=== PATIENT | male | born 1965 | race Caucasian/White ===

== ENCOUNTER 2019-12-28 15:26 | Inpatient (IN) | payer OTHER, SELFPAY ==
[2019-12-28] MEDS: LORazepam 1 MG TABLET 2 MG PO (17:42)
--- NOTE | 2019-12-28 17:45 | ED_ITS ---
HPI - Psych General Chief Complaint: Psychiatric Symptoms Stated Complaint: crisis Time Seen by Provider: 12/28/19 17:38 Source: patient and family Mode of arrival: ambulatory Limitations: no limitations History of Present Illness HPI Narrative: 54-year-old male with significant history of anxiety, depression, PTSD presents with anxiety and depression. States that he has had multiple anxiety and panic attacks at work and home. He is unable to function and complete ADLs. His depression and anxiety was exacerbated by the of his mother, his father in February, his mother a few months ago. He also reports that he has been , and his current has been picking up his slack because of his depression and anxiety. He states the medications that he takes are ineffective and continues to take them on a daily basis. He is hoping for psychiatric evaluation while he is here, he does have 1 pending the end of February. He does report suicidal ideation and thinks about it on a regular basis but does not have plan that he will discuss. Denies chest pain or pressure, palpitations, shortness of breath, abdominal pain, abdominal distention, dysuria, hematuria, fevers and chills. MD complaint: feels depressed and anxiety Onset (ago): month(s) Duration: getting worse History of same: Yes Relieving factors: none Associated psychiatric symptoms: depression and racing thoughts Related Data Home Medications Medication Instructions Recorded Confirmed buspirone 15 mg PO BID 12/28/19 12/28/19 clonazepam [Klonopin] 0.5 mg PO DAILY@0630 12/28/19 12/28/19 clonazepam [Klonopin] 1 mg PO BEDTIME 12/28/19 12/28/19 escitalopram oxalate 30 mg PO DAILY@0730 12/28/19 12/28/19 Allergies Allergy/AdvReac Type Severity Reaction Status Date / Time bee pollen [BEE STINGS] Allergy Severe SWELLING Verified 12/28/19 22:16 Review of Systems Review of Systems: Constitutional: No Fever, No Chills ENT/Mouth: No Ear Pain, No Nasal Congestion, No sore throat Eyes: No Eye Pain, No Swelling, No Redness Cardiovascular: No Chest Pain, No SOB Respiratory: No Cough, No Sputum, No Dyspnea Gastrointestinal: No Nausea, No Vomiting, No Diarrhea, No Hematochezia, No Melena Genitourinary: No Dysuria, No Urinary Frequency, No Hematuria Musculoskeletal: No Myalgias Skin: No Skin Lesions, No rash Neuro: No Weakness, No Numbness, No Paresthesias, No Dizziness, No Headache Psych: positive Anxiety, positive Depression, positive SI Heme/Lymph: No Lymphadenopathy Endocrine: No Polyuria, No Polydipsia [facility] Past Medical History Attestation statement: The following information was validated with the patient. Source: obtained from family Social History Social History Alcohol intake: former Smoking Status: Current every day smoker Smoked in Last 30 Days: Yes Use of substances other than those prescribed or required for medical reasons: No Advance Directives: No Advance Directives Information Provided: No Physical Exam Vital Signs: Vital Signs: Last Vital Signs Temp 97.3 F 12/28/19 21:46 Pulse 70 12/28/19 22:14 Resp 20 12/28/19 22:14 BP 127/59 L 12/28/19 21:46 Pulse Ox 96 12/28/19 21:46 Body Mass Index 26.4 Appearance: Alert. Oriented X3. No acute distress. Eyes: Pupils equal, round and reactive to light. ENT: Pharynx normal. Neck: Normal inspection. Neck supple. CVS: Normal heart rate and rhythm. Pulses normal. Respiratory: No respiratory distress. Breath sounds normal. Abdomen: Soft and nontender. Skin: Skin warm and dry. Normal skin color. Normal skin turgor. Extremities: No lower extremity edema. Neuro: No motor deficit. No sensory deficit. Course Course Course Narrative: 54-year-old male with significant history of anxiety, depression, PTSD presents with anxiety and depression. Plan of care is for medical clearance with CBC, Chem 7, urinalysis, toxicology screen and BHN consult. Reevaluation(s) Reevaluation #1: Bhn Consult complete, plan of care is for Section 12 bed search. Time: 23:00 MDM - Psych Differential Diagnosis Differential diagnosis: Likely acute psychosis, suicidal ideation, depression, drug-induced psychotic disorder, acute anxiety, post-traumatic stress disorder and mood disorder Restraints Face to Face Assessment: Face to Face Assessment: Current Situation: After assessment of the patient, a review of the pertinent medical record and a discussion with nursing staff, I feel the patient requires a restrain intervention. Reaction To: [] Medical Condition: [] Behavioral State: [] Continued Need: [] Medical Records Attestation: I reviewed the patient's medical records. Lab Data Attestation: I reviewed the patient's lab results. Result diagrams: 12/28/19 18:20 Labs: Lab Results 12/28/19 12/28/19 12/28/19 Range/Units 18:11 18:19 18:20 WBC 8.7 (4.8-10.8) X10*3/uL RBC 4.78 (4.60-5.80) X10*6/uL Hgb 14.5 (14.0-18.0) g/dl Hct 43.2 (42-52) % MCV 90.4 (80-98) fL MCH 30.3 (27.0-33.0) pg MCHC 33.6 (31.0-36.0) g/dl RDW 13.0 (11.0-16.0) % Plt Count 272 (160-400) X10*3/uL MPV 9.3 L (9.4-12.4) fL Immature Gran % (Auto) 0.6 H (0.0-0.4) % Neut % (Auto) 59.1 (45-73) % Lymph % (Auto) 29.5 (20-40) % [place] % (Auto) 7.5 (2-11) % Eos % (Auto) 2.5 (0-4) % Baso % (Auto) 0.8 (0-2) % Lymph # (Auto) 2.6 (1.2-4.9) X10*3/uL [place] # (Auto) 0.7 (0.1-1.2) X10*3/uL Eos # (Auto) 0.2 (0.0-0.4) X10*3/uL Baso # (Auto) 0.1 (0.0-0.2) X10*3/uL Abs Immat Gran (auto) 0.05 H (0.00-0.03) X10*3/uL Absolute Neuts (auto) 5.1 (2.0-8.3) X10*3/uL Absolute Nucleated RBC 0.000 (0.0-0.012) X10*3/uL Nucleated RBC % (auto) 0.0 (0.0-0.2) /100WBC Salicylates (15-30) mg/dL Urine Opiates Screen Not Detected (Not Detect) Acetaminophen (<30) mcg/mL Ur Barbiturates Screen Not Detected (Not Detect) Ur Phencyclidine Scrn Not Detected (Not Detect) Ur Amphetamines Screen Not Detected (Not Detect) U Benzodiazepines Scrn Not Detected (Not Detect) Urine Cocaine Screen Not Detected (Not Detect) U Marijuana (THC) Screen Not Detected (Not Detect) Ethyl Alcohol < 10 mg/dL 12/28/19 Range/Units 18:20 WBC (4.8-10.8) X10*3/uL RBC (4.60-5.80) X10*6/uL Hgb (14.0-18.0) g/dl Hct (42-52) % MCV (80-98) fL MCH (27.0-33.0) pg MCHC (31.0-36.0) g/dl RDW (11.0-16.0) % Plt Count (160-400) X10*3/uL MPV (9.4-12.4) fL Immature Gran % (Auto) (0.0-0.4) % Neut % (Auto) (45-73) % Lymph % (Auto) (20-40) % [place] % (Auto) (2-11) % Eos % (Auto) (0-4) % Baso % (Auto) (0-2) % Lymph # (Auto) (1.2-4.9) X10*3/uL [place] # (Auto) (0.1-1.2) X10*3/uL Eos # (Auto) (0.0-0.4) X10*3/uL Baso # (Auto) (0.0-0.2) X10*3/uL Abs Immat Gran (auto) (0.00-0.03) X10*3/uL Absolute Neuts (auto) (2.0-8.3) X10*3/uL Absolute Nucleated RBC (0.0-0.012) X10*3/uL Nucleated RBC % (auto) (0.0-0.2) /100WBC Salicylates < 5.0 L (15-30) mg/dL Urine Opiates Screen (Not Detect) Acetaminophen < 1 (<30) mcg/mL Ur Barbiturates Screen (Not Detect) Ur Phencyclidine Scrn (Not Detect) Ur Amphetamines Screen (Not Detect) U Benzodiazepines Scrn (Not Detect) Urine Cocaine Screen (Not Detect) U Marijuana (THC) Screen (Not Detect) Ethyl Alcohol mg/dL Discharge Plan Discharge Clinical Impression: Acute anxiety Depression Qualifiers: Depression Type: major depressive disorder Major depression recurrence: recurrent Active/Remission status: currently active Major depression episode severity: severe Psychotic features: without psychotic features Qualified Co de(s): F33.2 - Major depressive disorder, recurrent severe without psychotic features Prescriptions: No Action clonazepam [Klonopin] 0.5 mg Tablet 0.5 mg PO DAILY@0630 RF: 0 clonazepam [Klonopin] 1 mg Tablet 1 mg PO BEDTIME RF: 0 buspirone 15 mg Tablet 15 mg PO BID RF: 0 escitalopram oxalate 10 mg Tablet 30 mg PO DAILY@0730 RF: 0
[2019-12-28 18:29] LABS: Basophils Absolute Auto 0.1 X10*3/uL (0.0-0.2); Basophils Percent Auto 0.8 % (0-2); Eosinophils Absolute Auto 0.2 X10*3/uL (0.0-0.4); Eosinophils Percent Auto 2.5 % (0-4); Hematocrit 43.2 % (42-52); Hemoglobin 14.5 g/dl (14.0-18.0); Imm Gran Abs Auto 0.05 X10*3/uL (0.00-0.03); Imm Gran Pct Auto 0.6 % (0.0-0.4); Lymphocytes Absolute Auto 2.6 X10*3/uL (1.2-4.9); Lymphocytes Percent Auto 29.5 % (20-40); MANUAL DIFF FLAG NO; Mean Corpuscular HGB Conc 33.6 g/dl (31.0-36.0); Mean Corpuscular Hemoglobin 30.3 pg (27.0-33.0); Mean Corpuscular Volume 90.4 fL (80-98); Mean Platelet Volume 9.3 fL (9.4-12.4); Monocytes Absolute Auto 0.7 X10*3/uL (0.1-1.2); Monocytes Percent Auto 7.5 % (2-11); Neutrophils Absolute Auto 5.1 X10*3/uL (2.0-8.3); Neutrophils Percent Auto 59.1 % (45-73); Platelet Count 272 X10*3/uL (160-400); Red Blood Count 4.78 X10*6/uL (4.60-5.80); White Blood Count 8.7 X10*3/uL (4.8-10.8)
--- NOTE | 2019-12-28 18:45 | PC.NURSE ---
PT's called to assist with triage. stated that her has been extremely anxious at work, forcing him to leave work quite often. He was prescribed medications from the [facility] but and feel they are not helping with his symptoms. stated that the PT makes statements like you are better off without me on a frequent basis and she is fearful for his safety. PT states that he would like help with his metal health but is very anxious all the time.
--- NOTE | 2019-12-28 18:54 | PC.NURSE ---
Contacts: (Tonia) - [phone]; Therapist (Tab Cummings) [phone]
[2019-12-28 19:02] VITALS: BMI 26.4
[2019-12-28 19:10] LABS: Ethanol < 10 mg/dL
[2019-12-28 19:13] LABS: Amphetamine Screen Urine Not Detected (Not Detect); Barbiturates, Urine Not Detected (Not Detect); Benzodiazepines Screen Urine Not Detected (Not Detect); Cannabinoid Screen Urine Not Detected (Not Detect); Cocaine Screen Urine Not Detected (Not Detect); Opiate Screen Urine Not Detected (Not Detect); Phencyclidine Screen Urine Not Detected (Not Detect)
[2019-12-28 19:15] LABS: Acetaminophen LAB < 1 mcg/mL (<30)
[2019-12-28 19:20] LABS: Salicylate < 5.0 mg/dL (15-30)
[2019-12-28 21:46] VITALS: BP 127/59; PULSE 59; RESP 18; TEMP 36.3; O2SAT 96
[2019-12-28] MEDS: Nicotine 21 MG PATCH.TD24 TRANSDERMA (22:01)
--- NOTE | 2019-12-28 22:07 | PC.NURSE ---
Patient in bed resting, care team assessed the patient, patient engaged and cooperative with assessment, care team updated patient's disposition, patient is in-patient bed search. Patient and provider aware. Patient reported he is heavy smoker requested for nicotine patch, provider notified/ordered nicotine 21 mcg/administered as ordered. Patient denied distress at this time. Will continue to monitor.
[2019-12-28 22:14] VITALS: PULSE 70; RESP 20
[2019-12-28] MEDS: busPIRone HCl 5 MG TABLET 15 MG PO (22:38)
[2019-12-28] MEDS: clonazePAM 1 MG TABLET PO (22:38)
--- NOTE | 2019-12-29 | ECG_ITS ---
Test Reason : CARDIAC HISTORY Blood Pressure : / mmHG Vent. Rate : 058 BPM Atrial Rate : 058 BPM P-R Int : 148 ms QRS Dur : 110 ms QT Int : 456 ms P-R-T Axes : 053 082 073 degrees QTc Int : 447 ms Sinus bradycardia Otherwise normal ECG When compared with ECG of 06-APR-2015 19:19, Vent. rate has decreased BY 34 BPM Referred By: Hue Oliver Electronically Signed By:KAMLA NGUYEN MD
--- NOTE | 2019-12-29 02:31 | PC.NURSE ---
Patient in bed appears sleeping, no distress observed/reported, respiration +/=/non-labored bilaterally, will continue to monitor.
--- NOTE | 2019-12-29 04:22 | PC.NURSE ---
Patient in bed appears sleeping, no distress observed/reported, respiration +/=/non-labored bilaterally, will continue to monitor.
[2019-12-29] MEDS: Escitalopram Oxalate 10 MG TABLET 30 MG PO (06:33)
[2019-12-29] MEDS: clonazePAM 0.5 MG TABLET PO (06:33)
[2019-12-29 06:49] VITALS: BP 135/79; PULSE 76; RESP 17; TEMP 36.4; O2SAT 98
--- NOTE | 2019-12-29 07:38 | PC.NURSE ---
Report received from SHANNA Kruse. Pt awake, affect anxious, reports increased depression. Reviewed crisis process w/ pt, pt denies any needs at this time.
[2019-12-29 09:05] VITALS: BP 138/80; PULSE 65; TEMP 36.8; O2SAT 96
[2019-12-29] MEDS: busPIRone HCl 5 MG TABLET 15 MG PO ×2 (09:17→21:03)
[2019-12-29 10:05] LABS: Anion Gap 10 (12-20); Blood Urea Nitrogen 14 mg/dL (9-16); Calcium 8.4 mg/dL (8.4-10.2); Carbon Dioxide 30 mmol/L (22-29); Chloride 104 mmol/L (96-108); Creatinine Clr Calc Pharmacy 102.5; Estimated Glomerular Filt Rate > 60; Glucose Random 78 mg/dL (60-115); Potassium 4.5 mmol/l (3.3-5.1); Sodium 139 mmol/L (135-145)
[2019-12-29 10:07] LABS: COVID-19 Test Negative (Negative)
[2019-12-29] MEDS: Nicotine 21 MG PATCH.TD24 TRANSDERMA (10:36)
--- NOTE | 2019-12-29 10:54 | MHC.CARE ---
CARE Team contacted [phone] for pre-authorization claim submission. R requested clinical faxed to [phone] with the reference #[id number]. [facility] will follow up with inpatient UR within 3 business days.
[2019-12-29] MEDS: Acetaminophen 325 MG TABLET 650 MG PO (14:51)
--- NOTE | 2019-12-29 15:31 | PC.NURSE ---
Pt reporting headache- medicated as requested with tylenol- pt showered. Affect even, pt reports continued depression.
[2019-12-29 16:53] VITALS: BP 116/80; PULSE 65; RESP 20; TEMP 36.4; O2SAT 97
--- NOTE | 2019-12-29 17:55 | PC.NURSE ---
pt resting in room. reporting that headache is returning- will accept ibuprofen when dinner arrives- M5 called to see when pt will be transferred- will call back.
[2019-12-29] MEDS: Ibuprofen 600 MG TABLET PO (18:33)
--- NOTE | 2019-12-29 18:48 | PC.NURSE ---
Report given to SHANNA Dacosta on M5
--- NOTE | 2019-12-29 19:14 | MHC.CARE ---
CARE team met with this patient in EDBH pod 4 to facilitate transfer/admission to . Patient is being admitted voluntarily and signed CV.
[2019-12-29] MEDS: clonazePAM 1 MG TABLET PO (21:02)
--- NOTE | 2019-12-30 01:12 | PC.ADMIT ---
A 54 year old , white male was [facility] to [facility] as a CV following referral from [facility] and the CARE team. Pt has a previous admission on [facility] on 04/07/2015. Pt has previous hospitalizations at [facility] in the 1979's and in 2013. Pt presented to [facility] at the urging of his due to worsening anxiety that was impacting pt's level of functioning in the community. Pt reported feeling weak and fighting my body every day and his mood as numb and fightingg to be happy . Pt spoke of passive SI saying I wish this would all end, I am tired . Pt denied current SI with this securities underwriter but spoke of recent SI with a plan to O/D on alike or drive into a bridge abutment on [place] Pt said he can be safe on the unit, but was vague as to whether he could come to staff for help. Pt denies AH/VH. Pt denies homicidal thoughts or intent. Pt reports significant losses, having been twice and suffered the loss of both parents in the past year. Pt feels current medications are ineffective and would like med management. Pt has services from the [facility], but does not have an appointment with a provider until February 2020. BAL <10, RANDHAWA was negative. Medical problems include: eczema, arthritis, herniated disc lower back, and sleep apnea for which pt does not use CPAP. Pt was placed on 15 minute Safety Checks upon arrival. [id number] done and admitting orders obtained. Pt resting in room at this time.
[2019-12-30 06:35] VITALS: BP 104/60; PULSE 62; RESP 16; TEMP 36.4
[2019-12-30] MEDS: Escitalopram Oxalate 10 MG TABLET 30 MG PO (06:47)
[2019-12-30] MEDS: clonazePAM 0.5 MG TABLET PO (06:47)
[2019-12-30] MEDS: busPIRone HCl 5 MG TABLET 15 MG PO ×2 (08:57→20:34)
[2019-12-30] MEDS: Nicotine 21 MG PATCH.TD24 TRANSDERMA (08:59)
--- NOTE | 2019-12-30 11:42 | P.HPPS_ITS ---
HPI Chief Complaint: Depression, anxiety, hopelessness, passive SI Sources of Information: patient interviewed, chart reviewed and crisis/core team assessment reviewed HPI Narrative: pt reports that anxiety and depression started with the loss of 2 yrs ago. He reports this last year has been worse; He reports both his parents this year. He has been more depressed and anxious and has has trouble finding services; he is on a wting list at [facility]. He feels his meds are not working(started by [facility]) he has had to leave work up to 2 times a week due to panic attacks He is having frequent panic attacks and this has lead to feeling suicidal with passive SI thoughts and hopelessness. He reports ruminating about his health, his health, ruminating that he can not do his job; ruminating that the anxiety will never go away. He tells me he quit any ETOH and THC use 2 months ago because his current quit and he states it was out of hand. But he can not tell me how much he was using in clearer terms; He is very anxious and has difficulty expressing himself Past Psychiatric History: history of mental health treatment at [facility] and currently has therapist at [facility] Medical Evaluation Reviewed: Yes EKG normal except for bradycardia - eval in ED and medical cleared no apparent cranial nerve involvement chemistry and CBC essentially normal covid negative tox screen negative [facility] Medical History Anxiety Arthritis Narrative: pt reports hand surgery for fracture repair- unknown date reports hernia repari Surgical History Hx of tonsillectomy Family History: reports currently to 3rd ; reports lost his 2nd to illness 2 yrs ago; lost both parents this year- father in Feb 2019 and mother in July 2019. Pt reports he has not been right since. 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 He is vague about how much he used in past. Trauma History: loss of family members Diagnostics Vital Signs (24Hr): Vital Signs - 24 hr 12/29/19 16:53 12/30/19 06:35 Temperature 97.5 F 97.6 F Pulse Rate 65 62 Respiratory Rate 20 16 Blood Pressure 116/80 104/60 Pulse Oximetry 97 Body Mass Index 26.4 Labs Results: 12/28/19 18:20 12/29/19 09:30 Labs: Laboratory Results - last 48 hr 12/28/19 12/28/19 12/28/19 18:11 18:19 18:20 WBC 8.7 RBC 4.78 Hgb 14.5 Hct 43.2 MCV 90.4 MCH 30.3 MCHC 33.6 RDW 13.0 Plt Count 272 MPV 9.3 L Immature Gran % (Auto) 0.6 H Neut % (Auto) 59.1 Lymph % (Auto) 29.5 [place] % (Auto) 7.5 Eos % (Auto) 2.5 Baso % (Auto) 0.8 Lymph # (Auto) 2.6 [place] # (Auto) 0.7 Eos # (Auto) 0.2 Baso # (Auto) 0.1 Abs Immat Gran (auto) 0.05 H Absolute Neuts (auto) 5.1 Absolute Nucleated RBC 0.000 Nucleated RBC % (auto) 0.0 Sodium Potassium Chloride Carbon Dioxide Anion Gap BUN Creatinine Estim Creat Clear Calc Estimated GFR Random Glucose Calcium Salicylates Urine Opiates Screen Not Detected Acetaminophen Ur Barbiturates Screen Not Detected Ur Phencyclidine Scrn Not Detected Ur Amphetamines Screen Not Detected U Benzodiazepines Scrn Not Detected Urine Cocaine Screen Not Detected U Marijuana (THC) Screen Not Detected Ethyl Alcohol < 10 COVID-19 ([facility]) COVID-19 Clin Com 12/28/19 12/29/19 12/29/19 18:20 09:26 09:30 WBC RBC Hgb Hct MCV MCH MCHC RDW Plt Count MPV Immature Gran % (Auto) Neut % (Auto) Lymph % (Auto) [place] % (Auto) Eos % (Auto) Baso % (Auto) Lymph # (Auto) [place] # (Auto) Eos # (Auto) Baso # (Auto) Abs Immat Gran (auto) Absolute Neuts (auto) Absolute Nucleated RBC Nucleated RBC % (auto) Sodium 139 Potassium 4.5 Chloride 104 Carbon Dioxide 30 H Anion Gap 10 L BUN 14 Creatinine 0.85 Estim Creat Clear Calc 102.5 Estimated GFR > 60 Random Glucose 78 Calcium 8.4 Salicylates < 5.0 L Urine Opiates Screen Acetaminophen < 1 Ur Barbiturates Screen Ur Phencyclidine Scrn Ur Amphetamines Screen U Benzodiazepines Scrn Urine Cocaine Screen U Marijuana (THC) Screen Ethyl Alcohol COVID-19 ([facility]) Negative COVID-19 Clin Com See Note Meds/Allergies Meds Home Medications Acetaminophen (Acetaminophen 325 Mg Tablet) 650 mg PO Q6H PRN PRN Reason: Headache/Pain Mild Scale (1-3) Al Hydroxide/Mg Hydroxide (Magnesium Hydrox/Alum Hydrox 30 Ml Oral.Susp) 30 ml PO Q6H PRN PRN Reason: Heartburn/Nausea Buspirone HCl (Buspirone Hcl 5 Mg Tablet) 15 mg PO BID [facility] Last Admin: 12/30/19 08:57 Dose: 15 mg Documented by: Clonazepam (Clonazepam 0.5 Mg Tablet) 0.5 mg PO DAILY@0630 [facility] Last Admin: 12/30/19 06:47 Dose: 0.5 mg Documented by: Clonazepam (Clonazepam 1 Mg Tablet) 1 mg PO BEDTIME [facility] Last Admin: 12/29/19 21:02 Dose: 1 mg Documented by: Escitalopram Oxalate (Escitalopram Oxalate 10 Mg Tablet) 30 mg PO DAILY@0730 [facility] Last Admin: 12/30/19 06:47 Dose: 30 mg Documented by: Hydroxyzine HCl (Hydroxyzine Hcl 25 Mg Tablet) 25 mg PO BEDTIME PRN PRN Reason: Anxiety Magnesium Hydroxide (Milk Of Magnesia 30 Ml Oral.Susp) 30 ml PO DAILY PRN PRN Reason: Constipation Nicotine (Nicotine 21 Mg Patch.Td24) 21 mg TRANSDERMA DAILY [facility] Last Admin: 12/30/19 08:59 Dose: 21 mg Documented by: Olanzapine (Olanzapine 2.5 Mg Tablet) 2.5 mg PO BID [facility] Last Admin: 12/30/19 12:57 Dose: 2.5 mg Documented by: Trazodone HCl (Trazodone Hcl 50 Mg Tablet) 50 mg PO BEDTIME PRN PRN Reason: Insomnia Narrative: [facility] ; [facility] at [facility] Feb 2020 Allergies Allergies Allergy/AdvReac Type Severity Reaction Status Date / Time bee pollen [BEE STINGS] Allergy Severe SWELLING Verified 12/28/19 22:16 Mental Status Exam Mental Status Exam Patient Appearance: Fatigued and Disheveled Patient Orientation: Person, Place, Time and Situation Level of Consciousness: Awake and Alert Patient Behavior: Appropriate, Cooperative, Restless, Anxious, Fatigued and Good Eye Contact Behavior Comments: very anxious and distressed Mood Description: Depressed, Anxious and Apprehensive Affect Description: Anxious, Sad and Nervous Patient Cognition Impaired: Yes Ability to Follow Directions: Fair Speech Pattern: Impoverished, Soft-Spoken and Mumbled Memory Description: Intact Hallucinations: None Delusions: Not Present Thought Process: Distracted and Rumination Thought Content: positive for Preoccupation Depressive Symptoms: Increased Anxiety, Insomnia, Diff. Making Decisions, Muscle Tension, Increased Irritability, Difficulty Sleeping, Changes in Appetite, Crying Spells, Sleeping More Than Usual, Loss of Int. in Activity, Feelings of Worthlessness, Hopelessness, Increased Fatigue, Loss of Energy and Difficulty Concentrating Judgement: Fair Assessment & Plan Assessment & Plan (1) Depression: Status: Acute Qualifiers: Active/Remission status: currently active Depression Type: major depressive disorder Major depression episode severity: severe Major depression recurrence: recurrent Psychotic features: without psychotic features Qualified Code(s): F33.2 - Major depressive disorder, recurrent severe without psychotic features Code(s): F32.9 - Major depressive disorder, single episode, unspecified (2) Acute anxiety: Status: Acute Code(s): F41.9 - Anxiety disorder, unspecified Assessment and Plan: 15 min checks ULB psych groups Repeat ekg TSH with reflex trial of zyprexa 2.5 mg BID for ruminating, depression and anxiety consider reducing lexapro for possible agitation and consider changing to alternative agent if needed Patient educated on: diagnosis and medication risk/benefits Guardian/Caregiver educated on: diagnosis and medication risk/benefits Informed Consent: further education needed Reason for continued inpatient stay Substantial Risk for: inability to function and med/psych decompensation
[2019-12-30] MEDS: OLANZapine 2.5 MG TABLET PO ×2 (12:57→20:35)
[2019-12-30 18:00] VITALS: BP 132/75; PULSE 66; TEMP 36.1
[2019-12-30] MEDS: clonazePAM 1 MG TABLET PO (20:34)
--- NOTE | 2019-12-31 | ECG_ITS ---
Test Reason : CK QTC Blood Pressure : / mmHG Vent. Rate : 058 BPM Atrial Rate : 058 BPM P-R Int : 132 ms QRS Dur : 102 ms QT Int : 450 ms P-R-T Axes : 056 069 068 degrees QTc Int : 441 ms Sinus bradycardia Otherwise normal ECG When compared with ECG of 29-DEC-2019 18:26, No significant change was found Referred By: Marla Lopez Electronically Signed By:KAMLA NGUYEN MD
[2019-12-31 06:15] VITALS: BP 124/70; PULSE 60; RESP 16; TEMP 36; O2SAT 94
[2019-12-31] MEDS: Escitalopram Oxalate 10 MG TABLET 30 MG PO (08:57)
[2019-12-31] MEDS: busPIRone HCl 5 MG TABLET 15 MG PO ×2 (08:57→20:22)
[2019-12-31] MEDS: clonazePAM 0.5 MG TABLET PO (08:57)
[2019-12-31] MEDS: OLANZapine 2.5 MG TABLET PO ×2 (08:58→20:23)
[2019-12-31] MEDS: Nicotine 21 MG PATCH.TD24 TRANSDERMA (08:58)
[2019-12-31 10:15] LABS: TSH reflex Free T4 0.71 mIU/mL (0.32-4.0)
--- NOTE | 2019-12-31 12:06 | HO.PSYCHPN ---
Subjective Subjective Date of Service: 12/31/19 Reason For Visit: Depression, anxiety, hopelessness, passive SI Subjective Notes: Conditional Voluntary Interim History: pt toleratig zyprexa. Pt reports anxiety and ruminating are decreased. He is able to concentrate better; spent time reading today which he says he hasn't been able to do in a long time. He is hopeful about future but still worried about anxiety coming back and making it hard for him to go back to work. He denies side effects; no sedation, no dizziness TSH normal Medication Compliance: Yes Side effects from medications: No Attending Groups: No Review of Systems Review of Systems no changes Mental Status Exam Mental Status Exam Patient Appearance: Disheveled Patient Orientation: Person, Place, Time and Situation Level of Consciousness: Awake Patient Behavior: Appropriate and Good Eye Contact Mood Description: Depressed and Anxious Affect Description: Anxious Ability to Follow Directions: Fair Speech Pattern: Appropriate Thought Process: Distracted and Goal Oriented Thought Content: positive for Intact and positive for Preoccupation Depressive Symptoms: Increased Anxiety and Diff. Making Decisions Judgement: Fair Diagnostics Vital Signs (24Hr): Vital Signs - 24 hr 12/30/19 18:00 12/31/19 06:15 Temperature 97.0 F 96.8 F Pulse Rate 66 60 Respiratory Rate 16 Blood Pressure 132/75 124/70 Pulse Oximetry 94 Body Mass Index 26.4 Labs Results: 12/28/19 18:20 12/29/19 09:30 Labs: Laboratory Results - last 48 hr 12/31/19 09:11 TSH 0.71 Medications Medications Current Medications Generic Name Dose Route Start Last Admin Trade Name Ramonq PRN Reason Stop Dose Admin Acetaminophen 650 mg 12/29/19 18:56 Acetaminophen 325 Mg Tablet PO Q6H PRN Headache/Pain Mild Scale (1-3) Al Hydroxide/Mg Hydroxide 30 ml 12/29/19 18:56 Magnesium Hydrox/Alum Hydrox 30 Ml Oral.Susp PO Q6H PRN Heartburn/Nausea Buspirone HCl 15 mg 12/29/19 09:00 12/31/19 08:57 Buspirone Hcl 5 Mg Tablet PO 15 mg BID KATHERINE Administration Clonazepam 0.5 mg 12/29/19 06:30 12/31/19 08:57 Clonazepam 0.5 Mg Tablet PO 0.5 mg DAILY@0630 KATHERINE Administration Clonazepam 1 mg 12/29/19 21:00 12/30/19 20:34 Clonazepam 1 Mg Tablet PO 1 mg BEDTIME KATHERINE Administration Escitalopram Oxalate 30 mg 12/29/19 07:30 12/31/19 08:57 Escitalopram Oxalate 10 Mg Tablet PO 30 mg DAILY@0730 KATHERINE Administration Hydroxyzine HCl 25 mg 12/29/19 18:56 Hydroxyzine Hcl 25 Mg Tablet PO BEDTIME PRN Anxiety Magnesium Hydroxide 30 ml 12/29/19 18:56 Milk Of Magnesia 30 Ml Oral.Susp PO DAILY PRN Constipation Nicotine 21 mg 12/30/19 09:00 12/31/19 08:58 Nicotine 21 Mg Patch.Td24 TRANSDERMA 21 mg DAILY KATHERINE Administration Olanzapine 2.5 mg 12/30/19 11:50 12/31/19 08:58 Olanzapine 2.5 Mg Tablet PO 2.5 mg BID KATHERINE Administration Trazodone HCl 50 mg 12/29/19 18:56 Trazodone Hcl 50 Mg Tablet PO BEDTIME PRN Insomnia Allergies Allergies Allergy/AdvReac Type Severity Reaction Status Date / Time bee pollen [BEE STINGS] Allergy Severe SWELLING Verified 12/28/19 22:16 Assessment & Plan Assessment & Plan (1) Depression: Qualifiers: Active/Remission status: currently active Depression Type: major depressive disorder Major depression episode severity: severe Major depression recurrence: recurrent Psychotic features: without psychotic features Qualified Code(s): F33.2 - Major depressive disorder, recurrent severe without psychotic features Status: Acute Code(s): F32.9 - Major depressive disorder, single episode, unspecified (2) Acute anxiety: Status: Acute Code(s): F41.9 - Anxiety disorder, unspecified Assessment and Plan: 15 min checks CV Continue current treatment plan collateral contact Discharge planning Greater than 50% of the session was spent on counseling and/or coordination of care Patient educated on: diagnosis and medication risk/benefits Informed Consent: understands and further education needed Reason for contiued inpatient stay Substantial Risk for: inability to function, rapid decompensation and med/psych decompensation
[2019-12-31 16:26] VITALS: BP 149/77; PULSE 60; TEMP 36.3
[2019-12-31] MEDS: clonazePAM 1 MG TABLET PO (20:22)
[2020-01-01 06:20] VITALS: BP 110/57; PULSE 58; RESP 18; TEMP 36.6
--- NOTE | 2020-01-01 06:35 | HO.PSYCHPN ---
Subjective Subjective Reason For Visit: Depression, anxiety, hopelessness, passive SI Interim History: H and P reviewed. Hx panic attacks CHIO. Hx hazardous or at risk drinking but no consequences. Hx serial losses and caretaking. Good response to Clonaz. Will add PRN OLZ Review of Systems Review of Systems Yes all other systems are reviewed and are negative Mental Status Exam Mental Status Exam Patient Appearance: Disheveled Patient Orientation: Person, Place, Time and Situation Level of Consciousness: Awake Patient Behavior: Appropriate and Good Eye Contact Behavior Comments: very anxious and distressed Mood Description: Depressed and Anxious Affect Description: Anxious Patient Cognition Impaired: Yes Ability to Follow Directions: Fair Speech Pattern: Appropriate Memory Description: Intact Diagnostics Vital Signs (24Hr): Vital Signs - 24 hr 12/31/19 16:26 Temperature 97.4 F Pulse Rate 60 Blood Pressure 149/77 H Body Mass Index 26.4 Labs Results: 12/28/19 18:20 12/29/19 09:30 Labs: Laboratory Results - last 48 hr 12/31/19 09:11 TSH 0.71 Medications Medications Current Medications Generic Name Dose Route Start Last Admin Trade Name Freq PRN Reason Stop Dose Admin Acetaminophen 650 mg 12/29/19 18:56 Acetaminophen 325 Mg Tablet PO Q6H PRN Headache/Pain Mild Scale (1-3) Al Hydroxide/Mg Hydroxide 30 ml 12/29/19 18:56 Magnesium Hydrox/Alum Hydrox 30 Ml Oral.Susp PO Q6H PRN Heartburn/Nausea Buspirone HCl 15 mg 12/29/19 09:00 12/31/19 20:22 Buspirone Hcl 5 Mg Tablet PO 15 mg BID KATHERINE Administration Clonazepam 0.5 mg 12/29/19 06:30 12/31/19 08:57 Clonazepam 0.5 Mg Tablet PO 0.5 mg DAILY@0630 KATHERINE Administration Clonazepam 1 mg 12/29/19 21:00 12/31/19 20:22 Clonazepam 1 Mg Tablet PO 1 mg BEDTIME KATHERINE Administration Escitalopram Oxalate 30 mg 12/29/19 07:30 12/31/19 08:57 Escitalopram Oxalate 10 Mg Tablet PO 30 mg DAILY@0730 KATHERINE Administration Hydroxyzine HCl 25 mg 12/29/19 18:56 Hydroxyzine Hcl 25 Mg Tablet PO BEDTIME PRN Anxiety Magnesium Hydroxide 30 ml 12/29/19 18:56 Milk Of Magnesia 30 Ml Oral.Susp PO DAILY PRN Constipation Nicotine 21 mg 12/30/19 09:00 12/31/19 08:58 Nicotine 21 Mg Patch.Td24 TRANSDERMA 21 mg DAILY KATHERINE Administration Olanzapine 2.5 mg 12/30/19 11:50 12/31/19 20:23 Olanzapine 2.5 Mg Tablet PO 2.5 mg BID KATHERINE Administration Trazodone HCl 50 mg 12/29/19 18:56 Trazodone Hcl 50 Mg Tablet PO BEDTIME PRN Insomnia Allergies Allergies Allergy/AdvReac Type Severity Reaction Status Date / Time bee pollen [BEE STINGS] Allergy Severe SWELLING Verified 12/28/19 22:16 Assessment & Plan Assessment & Plan (1) Depression: Qualifiers: Active/Remission status: currently active Depression Type: major depressive disorder Major depression episode severity: severe Major depression recurrence: recurrent Psychotic features: without psychotic features Qualified Code(s): F33.2 - Major depressive disorder, recurrent severe without psychotic features Status: Acute Code(s): F32.9 - Major depressive disorder, single episode, unspecified (2) Acute anxiety: Status: Acute Code(s): F41.9 - Anxiety disorder, unspecified Assessment and Plan: 15 min checks CV Continue current treatment plan collateral contact Discharge planning Greater than 50% of the session was spent on counseling and/or coordination of care
[2020-01-01] MEDS: clonazePAM 0.5 MG TABLET PO (08:38)
[2020-01-01] MEDS: Escitalopram Oxalate 10 MG TABLET 30 MG PO (08:39)
[2020-01-01] MEDS: OLANZapine 2.5 MG TABLET PO ×3 (08:39→20:12)
[2020-01-01] MEDS: busPIRone HCl 5 MG TABLET 15 MG PO ×2 (08:39→20:13)
[2020-01-01] MEDS: Nicotine 21 MG PATCH.TD24 TRANSDERMA (08:40)
[2020-01-01 18:30] VITALS: BP 99/61; PULSE 72
[2020-01-01] MEDS: clonazePAM 1 MG TABLET PO (20:12)
--- NOTE | 2020-01-02 05:16 | HO.PSYCHPN ---
Subjective Subjective Reason For Visit: Depression, anxiety, hopelessness, passive SI Interim History: H and P reviewed. Hx panic attacks CHIO. Hx hazardous or at risk drinking but no consequences but says otherwise. Wants him to start AA. Hx serial losses and caretaking. Good response to Clonaz. Will add PRN OLZ and TW discussed limited use of Clonazepam,. FMLA at DC time re RTW discussed Mental Status Exam Mental Status Exam Patient Appearance: Disheveled Patient Orientation: Person, Place, Time and Situation Level of Consciousness: Awake Patient Behavior: Appropriate and Good Eye Contact Behavior Comments: very anxious and distressed Mood Description: Depressed and Anxious Affect Description: Anxious Patient Cognition Impaired: Yes Ability to Follow Directions: Fair Speech Pattern: Appropriate Memory Description: Intact Diagnostics Vital Signs (24Hr): Vital Signs - 24 hr 01/01/20 06:20 01/01/20 18:30 Temperature 97.8 F Pulse Rate 58 72 Respiratory Rate 18 Blood Pressure 110/57 L 99/61 Body Mass Index 26.4 Labs Results: 12/28/19 18:20 12/29/19 09:30 Labs: Laboratory Results - last 48 hr 12/31/19 09:11 TSH 0.71 Medications Medications Current Medications Generic Name Dose Route Start Last Admin Trade Name Freq PRN Reason Stop Dose Admin Acetaminophen 650 mg 12/29/19 18:56 Acetaminophen 325 Mg Tablet PO Q6H PRN Headache/Pain Mild Scale (1-3) Al Hydroxide/Mg Hydroxide 30 ml 12/29/19 18:56 Magnesium Hydrox/Alum Hydrox 30 Ml Oral.Susp PO Q6H PRN Heartburn/Nausea Buspirone HCl 15 mg 12/29/19 09:00 01/01/20 20:13 Buspirone Hcl 5 Mg Tablet PO 15 mg BID KATHERINE Administration Clonazepam 0.5 mg 12/29/19 06:30 01/01/20 08:38 Clonazepam 0.5 Mg Tablet PO 0.5 mg DAILY@0630 KATHERINE Administration Clonazepam 1 mg 12/29/19 21:00 01/01/20 20:12 Clonazepam 1 Mg Tablet PO 1 mg BEDTIME KATHERINE Administration Clonazepam 1 mg 01/01/20 12:14 Clonazepam 1 Mg Tablet PO RQ6H PRN Anxiety Escitalopram Oxalate 30 mg 12/29/19 07:30 01/01/20 08:39 Escitalopram Oxalate 10 Mg Tablet PO 30 mg DAILY@0730 KATHERINE Administration Hydroxyzine HCl 25 mg 12/29/19 18:56 Hydroxyzine Hcl 25 Mg Tablet PO BEDTIME PRN Anxiety Magnesium Hydroxide 30 ml 12/29/19 18:56 Milk Of Magnesia 30 Ml Oral.Susp PO DAILY PRN Constipation Nicotine 21 mg 12/30/19 09:00 01/01/20 08:40 Nicotine 21 Mg Patch.Td24 TRANSDERMA 21 mg DAILY KATHERINE Administration Olanzapine 2.5 mg 12/30/19 11:50 01/01/20 20:12 Olanzapine 2.5 Mg Tablet PO 2.5 mg BID KATHERINE Administration Olanzapine 2.5 mg 01/01/20 12:16 01/01/20 12:39 Olanzapine 2.5 Mg Tablet PO 2.5 mg RQ6H PRN Administration anxiety/restlessness Trazodone HCl 50 mg 12/29/19 18:56 Trazodone Hcl 50 Mg Tablet PO BEDTIME PRN Insomnia Allergies Allergies Allergy/AdvReac Type Severity Reaction Status Date / Time bee pollen [BEE STINGS] Allergy Severe SWELLING Verified 12/28/19 22:16 Assessment & Plan Assessment & Plan (1) Depression: Qualifiers: Active/Remission status: currently active Depression Type: major depressive disorder Major depression episode severity: severe Major depression recurrence: recurrent Psychotic features: without psychotic features Qualified Code(s): F33.2 - Major depressive disorder, recurrent severe without psychotic features Status: Acute Code(s): F32.9 - Major depressive disorder, single episode, unspecified (2) Acute anxiety: Status: Acute Code(s): F41.9 - Anxiety disorder, unspecified Assessment and Plan: 15 min checks CV Continue current treatment plan Cross taper Lexapro. Add Cym. [place] Buspar collateral contact Discharge planning Greater than 50% of the session was spent on counseling and/or coordination of care
[2020-01-02 06:00] VITALS: BP 138/71; PULSE 58; TEMP 36.3
[2020-01-02] MEDS: Nicotine 21 MG PATCH.TD24 TRANSDERMA (09:03)
[2020-01-02] MEDS: clonazePAM 0.5 MG TABLET PO (09:04)
[2020-01-02] MEDS: Escitalopram Oxalate 10 MG TABLET 30 MG PO (09:05)
[2020-01-02] MEDS: OLANZapine 2.5 MG TABLET PO ×2 (09:05→20:36)
[2020-01-02] MEDS: busPIRone HCl 5 MG TABLET 15 MG PO (09:05)
[2020-01-02 18:00] VITALS: BP 136/72; PULSE 65; TEMP 36.9
[2020-01-02] MEDS: clonazePAM 1 MG TABLET PO (20:36)
--- NOTE | 2020-01-03 04:37 | HO.PSYCHPN ---
Subjective Subjective Reason For Visit: Depression, anxiety, hopelessness, passive SI Interim History: H and P reviewed. Hx panic attacks CHIO. Hx hazardous or at risk drinking but no consequences but says otherwise. Wants him to start AA. Hx serial losses and caretaking. Good response to Clonaz. Will add PRN OLZ and TW discussed limited use of Clonazepam,. FMLA at DC time re RTW discussed. Improving overall. DC Thurs Mental Status Exam Mental Status Exam Patient Appearance: Disheveled Patient Orientation: Person, Place, Time and Situation Level of Consciousness: Awake Patient Behavior: Appropriate and Good Eye Contact Behavior Comments: very anxious and distressed Mood Description: Depressed and Anxious Affect Description: Anxious Patient Cognition Impaired: Yes Ability to Follow Directions: Fair Speech Pattern: Appropriate Memory Description: Intact Diagnostics Vital Signs (24Hr): Vital Signs - 24 hr 01/02/20 06:00 01/02/20 18:00 Temperature 97.3 F 98.4 F Pulse Rate 58 65 Blood Pressure 138/71 136/72 Body Mass Index 26.4 Labs Results: 12/28/19 18:20 12/29/19 09:30 Medications Medications Current Medications Generic Name Dose Route Start Last Admin Trade Name Freq PRN Reason Stop Dose Admin Acetaminophen 650 mg 12/29/19 18:56 Acetaminophen 325 Mg Tablet PO Q6H PRN Headache/Pain Mild Scale (1-3) Al Hydroxide/Mg Hydroxide 30 ml 12/29/19 18:56 Magnesium Hydrox/Alum Hydrox 30 Ml Oral.Susp PO Q6H PRN Heartburn/Nausea Clonazepam 0.5 mg 12/29/19 06:30 01/02/20 09:04 Clonazepam 0.5 Mg Tablet PO 0.5 mg DAILY@0630 KATHERINE Administration Clonazepam 1 mg 12/29/19 21:00 01/02/20 20:36 Clonazepam 1 Mg Tablet PO 1 mg BEDTIME KATHERINE Administration Clonazepam 1 mg 01/01/20 12:14 Clonazepam 1 Mg Tablet PO RQ6H PRN Anxiety Duloxetine HCl 20 mg 01/03/20 09:00 Duloxetine Hcl 20 Mg Capsule.Dr PO DAILY KATHERINE Escitalopram Oxalate 20 mg 01/03/20 07:30 Escitalopram Oxalate 10 Mg Tablet PO DAILY@0730 KATHERINE Hydroxyzine HCl 25 mg 12/29/19 18:56 Hydroxyzine Hcl 25 Mg Tablet PO BEDTIME PRN Anxiety Magnesium Hydroxide 30 ml 12/29/19 18:56 Milk Of Magnesia 30 Ml Oral.Susp PO DAILY PRN Constipation Nicotine 21 mg 12/30/19 09:00 01/02/20 09:03 Nicotine 21 Mg Patch.Td24 TRANSDERMA 21 mg DAILY KATHERINE Administration Olanzapine 2.5 mg 12/30/19 11:50 01/02/20 20:36 Olanzapine 2.5 Mg Tablet PO 2.5 mg BID KATHERINE Administration Olanzapine 2.5 mg 01/01/20 12:16 01/01/20 12:39 Olanzapine 2.5 Mg Tablet PO 2.5 mg RQ6H PRN Administration anxiety/restlessness Trazodone HCl 50 mg 12/29/19 18:56 Trazodone Hcl 50 Mg Tablet PO BEDTIME PRN Insomnia Allergies Allergies Allergy/AdvReac Type Severity Reaction Status Date / Time bee pollen [BEE STINGS] Allergy Severe SWELLING Verified 12/28/19 22:16 Assessment & Plan Assessment & Plan (1) Depression: Qualifiers: Active/Remission status: currently active Depression Type: major depressive disorder Major depression episode severity: severe Major depression recurrence: recurrent Psychotic features: without psychotic features Qualified Code(s): F33.2 - Major depressive disorder, recurrent severe without psychotic features Status: Acute Code(s): F32.9 - Major depressive disorder, single episode, unspecified (2) Acute anxiety: Status: Acute Code(s): F41.9 - Anxiety disorder, unspecified Assessment and Plan: 15 min checks CV Continue current treatment plan Cross taper Lexapro. Add Cym. [place] Buspar collateral contact Discharge planning Greater than 50% of the session was spent on counseling and/or coordination of care
[2020-01-03 05:30] VITALS: BP 126/85; PULSE 56; RESP 18; TEMP 36.4
[2020-01-03] MEDS: DULoxetine HCl 20 MG CAPSULE.DR PO (09:02)
[2020-01-03] MEDS: Nicotine 21 MG PATCH.TD24 TRANSDERMA (09:03)
[2020-01-03] MEDS: Escitalopram Oxalate 10 MG TABLET PO (09:03)
[2020-01-03 18:00] VITALS: BP 145/80; PULSE 102; TEMP 36.3
[2020-01-03] MEDS: clonazePAM 1 MG TABLET PO (20:48)
--- NOTE | 2020-01-04 03:31 | P.PNPSI_ITS ---
Subjective Subjective Reason For Visit: Depression, anxiety, hopelessness, passive SI Diagnostics Vital Signs (24Hr): Vital Signs - 24 hr 01/03/20 05:30 01/03/20 18:00 Temperature 97.6 F 97.3 F Pulse Rate 56 102 H Respiratory Rate 18 Blood Pressure 126/85 145/80 H Body Mass Index 26.4 Labs Results: 12/28/19 18:20 12/29/19 09:30 Medications Medications Current Medications Generic Name Dose Route Start Last Admin Trade Name Freq PRN Reason Stop Dose Admin Acetaminophen 650 mg 12/29/19 18:56 Acetaminophen 325 Mg Tablet PO Q6H PRN Headache/Pain Mild Scale (1-3) Al Hydroxide/Mg Hydroxide 30 ml 12/29/19 18:56 Magnesium Hydrox/Alum Hydrox 30 Ml Oral.Susp PO Q6H PRN Heartburn/Nausea Clonazepam 1 mg 01/01/20 12:14 Clonazepam 1 Mg Tablet PO RQ6H PRN Anxiety Clonazepam 1 mg 01/04/20 21:00 Clonazepam 1 Mg Tablet PO BEDTIME KATHERINE Duloxetine HCl 20 mg 01/03/20 09:00 01/03/20 09:02 Duloxetine Hcl 20 Mg Capsule.Dr PO 20 mg DAILY KATHERINE Administration Escitalopram Oxalate 10 mg 01/03/20 07:30 01/03/20 09:03 Escitalopram Oxalate 10 Mg Tablet PO 10 mg DAILY@0730 KATHERINE Administration Hydrocortisone 1 appl 01/03/20 21:00 Hydrocortisone 1 % Cream 28.35 Gm Tube TOPICAL BID [facility] Protocol Hydroxyzine HCl 25 mg 12/29/19 18:56 Hydroxyzine Hcl 25 Mg Tablet PO BEDTIME PRN Anxiety Magnesium Hydroxide 30 ml 12/29/19 18:56 Milk Of Magnesia 30 Ml Oral.Susp PO DAILY PRN Constipation Multi-Ingred Cream/Lotion/Oil/Oint 1 appl 01/03/20 21:00 Mineral Oil/Petrolatum,White 106 Gm Tube TOPICAL BID KATHERINE Nicotine 21 mg 12/30/19 09:00 01/03/20 09:03 Nicotine 21 Mg Patch.Td24 TRANSDERMA 21 mg DAILY KATHERINE Administration Olanzapine 2.5 mg 01/01/20 12:16 01/01/20 12:39 Olanzapine 2.5 Mg Tablet PO 2.5 mg RQ6H PRN Administration anxiety/restlessness Trazodone HCl 50 mg 12/29/19 18:56 Trazodone Hcl 50 Mg Tablet PO BEDTIME PRN Insomnia Allergies Allergies Allergy/AdvReac Type Severity Reaction Status Date / Time bee pollen [BEE STINGS] Allergy Severe SWELLING Verified 12/28/19 22:16 Assessment & Plan Greater than 50% of the session was spent on counseling and/or coordination of care
--- NOTE | 2020-01-04 04:48 | P.DS_ITS ---
DS: Providers Provider Date of admission: 12/29/19 12:49 Primary care physician: Unknown Physician DS: Diagnosis Discharge Diagnosis (1) Depression: Status: Acute (2) Acute anxiety: Status: Acute DS: Medications Discharge Medications Home Medications: Home Medications Medication Instructions Recorded Confirmed buspirone 15 mg PO BID 12/28/19 12/28/19 clonazepam [Klonopin] 0.5 mg PO DAILY@0630 12/28/19 12/28/19 clonazepam [Klonopin] 1 mg PO BEDTIME 12/28/19 12/28/19 escitalopram oxalate 30 mg PO DAILY@0730 12/28/19 12/28/19 Discharge Plan Discharge Patient Disposition: Home, Self-Care Referrals: Dr. Hopkins, psychiatry [Other] - 01/10/20 11:00 am (Telehealth) Dr. Hopkins, psychiatry [Other] - 02/07/20 11:00 am (Telehealth) Erick Burnette MD [Physician] - 01/10/20 3:30 pm (IN OFFICE) Discharge Medications: New olanzapine 2.5 mg Tablet 2.5 mg PO BID PRN (Reason: Anxiety/Restlessness) 30 Days Qty: 60 RF: 0 hydrocortisone 1 % Cream 1 appl topical BID 30 Days Qty: 10 RF: 0 Dermacerin Cream 1 appl topical BID 30 Days Qty: 1 RF: 0 duloxetine 20 mg Capsule,Delayed Release(Dr/Ec) 20 mg PO DAILY 30 Days Qty: 30 RF: 0 Changed clonazepam [Klonopin] 0.5 mg Tablet 0.5 mg PO BID PRN (Reason: Anxiety) 30 Days Qty: 15 RF: 0 escitalopram oxalate 10 mg Tablet 10 mg PO DAILY@0730 5 Days Qty: 5 RF: 0 Discontinued clonazepam [Klonopin] 1 mg Tablet 1 mg PO BEDTIME RF: 0 buspirone 15 mg Tablet 15 mg PO BID RF: 0 Discharge Orders: Discharge Order (Routine); Ordered 01/04/20 Ordered By: Mauro Flores Diet: regular diet Activity on Discharge: As tolerated Stand Alone Forms: Community Support Discharge Date/Time: 01/04/20 13:05 Activity Restrictions/Additional Instructions: Pt tolerating current meds well as observed here. OK to handle machinery at work provided he uses meds as prescribed and does not use illicit substances Visit Report Forms: Patient Portal Discharge page Care Plan Goals: Resolve anxiety/panic Address low mood address complex grief Health Concerns: Anxiety Panic Depression Grief/loss Alcohol use Plan of Treatment: Ct meds See therapist AA Data Data Completed and Pending Completed studies during hospitalization [Text1]: 12/28/19 12/28/19 12/28/19 18:11 18:19 18:20 WBC 8.7 RBC 4.78 Hgb 14.5 Hct 43.2 MCV 90.4 MCH 30.3 MCHC 33.6 RDW 13.0 Plt Count 272 MPV 9.3 L Immature Gran % (Auto) 0.6 H Neut % (Auto) 59.1 Lymph % (Auto) 29.5 [place] % (Auto) 7.5 Eos % (Auto) 2.5 Baso % (Auto) 0.8 Lymph # (Auto) 2.6 [place] # (Auto) 0.7 Eos # (Auto) 0.2 Baso # (Auto) 0.1 Abs Immat Gran (auto) 0.05 H Absolute Neuts (auto) 5.1 Absolute Nucleated RBC 0.000 Nucleated RBC % (auto) 0.0 Sodium Potassium Chloride Carbon Dioxide Anion Gap BUN Creatinine Estim Creat Clear Calc Estimated GFR Random Glucose Calcium TSH Salicylates Urine Opiates Screen Not Detected Acetaminophen Ur Barbiturates Screen Not Detected Ur Phencyclidine Scrn Not Detected Ur Amphetamines Screen Not Detected U Benzodiazepines Scrn Not Detected Urine Cocaine Screen Not Detected U Marijuana (THC) Screen Not Detected Ethyl Alcohol < 10 COVID-19 ([facility]) COVID-19 Clin Com 12/28/19 12/29/19 12/29/19 18:20 09:26 09:30 WBC RBC Hgb Hct MCV MCH MCHC RDW Plt Count MPV Immature Gran % (Auto) Neut % (Auto) Lymph % (Auto) Child[place] % (Auto) Eos % (Auto) Baso % (Auto) Lymph # (Auto) [place] # (Auto) Eos # (Auto) Baso # (Auto) Abs Immat Gran (auto) Absolute Neuts (auto) Absolute Nucleated RBC Nucleated RBC % (auto) Sodium 139 Potassium 4.5 Chloride 104 Carbon Dioxide 30 H Anion Gap 10 L BUN 14 Creatinine 0.85 Estim Creat Clear Calc 102.5 Estimated GFR > 60 Random Glucose 78 Calcium 8.4 TSH Salicylates < 5.0 L Urine Opiates Screen Acetaminophen < 1 Ur Barbiturates Screen Ur Phencyclidine Scrn Ur Amphetamines Screen U Benzodiazepines Scrn Urine Cocaine Screen U Marijuana (THC) Screen Ethyl Alcohol COVID-19 ([facility]) Negative COVID-19 Clin Com See Note 12/31/19 09:11 WBC RBC Hgb Hct MCV MCH MCHC RDW Plt Count MPV Immature Gran % (Auto) Neut % (Auto) Lymph % (Auto) [place] % (Auto) Eos % (Auto) Baso % (Auto) Lymph # (Auto) [place] # (Auto) Eos # (Auto) Baso # (Auto) Abs Immat Gran (auto) Absolute Neuts (auto) Absolute Nucleated RBC Nucleated RBC % (auto) Sodium Potassium Chloride Carbon Dioxide Anion Gap BUN Creatinine Estim Creat Clear Calc Estimated GFR Random Glucose Calcium TSH 0.71 Salicylates Urine Opiates Screen Acetaminophen Ur Barbiturates Screen Ur Phencyclidine Scrn Ur Amphetamines Screen U Benzodiazepines Scrn Urine Cocaine Screen U Marijuana (THC) Screen Ethyl Alcohol COVID-19 ([facility]) COVID-19 Clin Com DS: Summary Hospital Course Hospital Course: pt reports that anxiety and depression started with the loss of 2 yrs ago. He reports this last year has been worse; He reports both his parents this year. He has been more depressed and anxious and has has trouble finding services; he is on a wting list at [facility]. He feels his meds are not working(started by [place]) he has had to leave work up to 2 times a week due to panic attacks He is having frequent panic attacks and this has lead to feeling suicidal with passive SI thoughts and hopelessness. He reports ruminating about his health, his health, ruminating that he can not do his job; ruminating that the anxiety will never go away. He tells me he quit any ETOH and THC use 2 months ago because his current quit and he states it was out of hand. But he can not tell me how much he was using in clearer terms; He is very anxious and has difficulty expressing himself Past Psychiatric History: history of mental health treatment at [facility] and currently has therapist at [facility] Pleasant cooperative. Educated on Grief/loss/coping skills. Also counseled re substance use. supportive of AA and pt also motivated re abstinence. Lexapro was tapering and pt started on Cymbalta. Responded well to OLZ too. Responsible use of Clonazepam for severe panic discussed. will dispense meds only PRN. FMLA papers done. Pt ok to use machinery if complies with meds as discussed and prescribed. Did not show any adverse effects to meds. Time spent discussing smoking cessation with patient: more than 10 minutes Status at Discharge Functional status at discharge: independent ambulation Overall status at discharge: patient is progressing back to baseline Time Spent with Patient Time attestation: Total time spent providing and/or coordinating discharge services: Time spent: Greater than 30 minutes
[2020-01-04 05:50] VITALS: BP 119/70; PULSE 67; RESP 16; TEMP 36.3; O2SAT 98
[2020-01-04] MEDS: Nicotine 21 MG PATCH.TD24 TRANSDERMA (08:46)
[2020-01-04] MEDS: DULoxetine HCl 20 MG CAPSULE.DR PO (08:48)
[2020-01-04] MEDS: Escitalopram Oxalate 10 MG TABLET PO (08:54)
[2020-01-04] MEDS: Mineral Oil/Petrolatum,White 106 GM Tube 1 APPL TOPICAL (09:07)
[2020-01-04] MEDS: Hydrocortisone 1 % Cream 28.35 GM TUBE 1 APPL TOPICAL (09:07)
== END 2020-01-04 13:05 | disposition home or self-care (01) | DRG 885 ==
LOC: HO.ED 23:44 → HO.PM5 12-29 14:46
PROVIDERS: Clinical Nurse Specialist Psychiatric/Mental Health; Nurse Practitioner Family; Physician Assistant Medical; Admitting Provider Psychiatry & Neurology Psychiatry; Emergency Provider Emergency Medicine Emergency Medical Services; Visit Provider Psychiatry & Neurology Psychiatry
DX: F33.2 Major depressive disorder, recurrent severe without psychotic features (principal); F41.1 Generalized anxiety disorder; Z20.828 Contact with and (suspected) exposure to other viral communicable diseases; F17.210 Nicotine dependence, cigarettes, uncomplicated; Z71.6 Tobacco abuse counseling; Z79.899 Other long term (current) drug therapy
CPT/HCPCS: 36415; 80048; 80307; 80320; 84443; 85025; 87635; 90792; 93005; 99232; 99239; 99285; G0480

== ENCOUNTER 2020-08-11 12:06 | Emergency (ER) | payer OTHER, SELFPAY ==
[2020-08-11 12:11] VITALS: BP 152/81; PULSE 88; RESP 18; TEMP 36.7; O2SAT 97; BMI 30.1
[2020-08-11] MEDS: Fluorescein Sodium STRIP 1 STRIP EYE-RIGHT (12:25)
[2020-08-11] MEDS: Tetracaine HCl/PF 0.5% Oph Sol 4 ML DROPS 1 DROP EYE-RIGHT (12:25)
--- NOTE | 2020-08-11 12:40 | ED_ITS ---
HPI - Eye Problem General Chief complaint: Eye Problems Stated complaint: R EYE INJ Time Seen by Provider: 08/11/20 12:19 Source: patient Mode of arrival: ambulatory Limitations: no limitations History of Present Illness HPI Narrative: Struck in right eye yesterday with tree branch. Now here with eye drainage, irritation and redness to eye. No vision changes. Tetanus unknown. Related Data Previous Rx's Medication Instructions Recorded clonazepam [Klonopin] 0.5 mg PO BID PRN 30 Days #15 tab 01/04/20 duloxetine 20 mg PO DAILY 30 Days #30 cap 01/04/20 escitalopram oxalate 10 mg PO DAILY@0730 5 Days #5 tab 01/04/20 hydrocortisone 1 appl TOPICAL BID 30 Days #10 g 01/04/20 olanzapine 2.5 mg PO BID PRN 30 Days #60 tab 01/04/20 white petrolatum-mineral oil 1 appl TOPICAL BID 30 Days #1 kit 01/04/20 [Dermacerin] erythromycin 0.5 inch OPHTHALMIC-RIGHT BID 7 08/11/20 Days #1 g Allergies Allergy/AdvReac Type Severity Reaction Status Date / Time bee pollen [BEE STINGS] Allergy Severe SWELLING Verified 12/28/19 22:16 Review of Systems Review of Systems: Yes all other systems are reviewed and are negative Constitutional: Constitutional: Reports no additional constitutional complaints, Denies body ache(s), Denies chills, Denies fever(s), Denies headache(s) and Denies weakness Eyes: Eyes: Reports no additional eye complaints, Denies change in vision, Reports eye discharge (watery), Reports irritation and Reports photophobia ENT: Reports system reviewed and no additional complaints, except as documented, Denies dizziness, Denies headache(s), Denies nasal congestion, Denies nasal discharge and Denies neck pain Cardiovascular: Cardiovascular: Reports no additional cardiovascular complaints, Denies chest pain, Denies leg edema and Denies dyspnea Respiratory: Respiratory: Reports no additional respiratory complaints, Denies cough and Denies dyspnea Gastrointestinal: Gastrointestinal: Reports no additional gastrointestinal complaints, Denies abdominal pain, Denies diarrhea, Denies nausea and Denies vomiting Genitourinary: Genitourinary: Denies urinary incontinence Musculoskeletal: Musculoskeletal: Reports no additional musculoskeletal complaints, Denies back pain, Denies arthralgias, Denies joint swelling, Denies neck pain, Denies numbness and Denies tingling Integumentary/Breasts: Skin/Breast: Reports system reviewed and no additional complaints, except as docu and Denies rash Neurologic: Reports system reviewed and no additional complaints, except as documented, Denies Abnormal speech present, Denies dizziness, Denies headache(s), Denies numbness, Denies tingling and Denies weakness PMFSH Past Medical History Attestation statement: The following information was validated with the patient. Source: old records reviewed and nursing notes reviewed Medical History Anxiety Arthritis Surgical History Hx of tonsillectomy Social History Social History Household Members: Spouse Housing: Unknown / Unable to assess Alcohol intake: former Cigarette Packs Per Day: 1 Cigarettes Per Day: 20.0 Years Smoked: 40 Second Hand Smoke Exposure: No Advance Directives: Yes Advance Directives Information Provided: Yes Advance Directives on File: No service: Yes Sexual orientation: Straight/Heterosexual Physical Exam Vital Signs: Vital Signs: Last Vital Signs Temp 98.1 F 08/11/20 12:11 Pulse 88 08/11/20 12:11 Resp 18 08/11/20 12:11 BP 152/81 H 08/11/20 12:11 Pulse Ox 97 08/11/20 12:11 Body Mass Index 30.1 Const: General: cooperative, healthy appearing, comfortable and no acute distress Orientation/consciousness: patient oriented x3 Limitations: no limitations HENMT: Head: Yes normal to inspection Ears: hearing grossly normal bilaterally and TM's normal bilaterally General nose exam: Normal external nose present Face and sinus: Yes normal facial exam Mouth: Normal oral and palatal mucosa present Throat: Yes posterior oropharynx normal, Yes tonsils normal and Yes uvula midline Eyes: General: appearance normal, both eyes and all related structures Visual Blank: normal visual blank by confrontation Alignment and Position: alignment normal Periorbital: periorbital findings normal Eyelids: Yes eyelids normal Conjunctivae: conjunctivae normal Sclerae: sclerae normal Corneas: fluorescein used (at the 7 o clock position pinpoint lesion with uptake noted) Pupils: Equal, round and reactive pupils present EOM: EOMs intact bilaterally Direct Ophthalmoscopy: normal light reflex and photophobia Eyes/upper lids images: 1. pinpoint lesion with increased uptake Neck: Neck: Yes normal visual inspection Chest: Chest palpation & inspection: normal inspection of the chest Resp: Effort & Inspection: normal respiratory effort Auscultation: clear to auscultation bilaterally Cardio: Rate: regular rate Rhythm: regular rhythm Peripheral pulses: Peripheral pulses 2+ throughout GI: Inspection: Yes normal to inspection Palpation (GI): Soft to palpation and nontender Auscultation: normal bowel sounds Back/Spine/Pelvis: Thoracic/Lumbar Spine: thoracic and lumbar spine normal to inspection Skin: General skin exam: no rashes or lesions noted Neuro: General: patient oriented x3, no focal motor deficits and normal sensation to monofilament Cranial nerves: Yes Equal, round and reactive pupils present Cognition (Neuro): normal cognition Speech: No Abnormal s peech present Gait exam (Neuro): Normal gait present Motor exam (neuro): 5/5 motor strength present throughout Extrem: General: Yes normal to inspection Course Course Course Narrative: 54 yo male here with right eye irritation, drainage and photophobia after being struck with a tree branch right eye. On exam has punctuate area to the cornea ?FB vs abrasion. Attempted to remove d/t concern for FB but no change in appearance so maybe atypical appearing abrasion. Tetanus updated. Will refer to opthmo. Reviewed worrisome signs and symptoms and when to return to the emergency department. Comfortable discharge home. Discharge Plan Discharge Clinical Impression: Corneal abrasion Qualifiers: Encounter type: initial encounter Laterality: right Qualified Code(s): S05.01XA - Injury of conjunctiva and corneal abrasion without foreign body, right eye, initial encounter Patient Disposition: Home, Self-Care Instructions: Corneal Abrasion (ED) Additional Instructions: There was a small area that may be a scratch or a small foreign body. We are referring you the eye doctor for a follow-up Cool compresses Prescriptions: New erythromycin 5 mg/gram (0.5 %) ointment 0.5 inch ophthalmic-Right BID 7 Days Qty: 1 RF: 0 No Action olanzapine 2.5 mg Tablet 2.5 mg PO BID PRN (Reason: Anxiety/Restlessness) 30 Days Qty: 60 RF: 0 hydrocortisone 1 % Cream 1 appl topical BID 30 Days Qty: 10 RF: 0 Dermacerin Cream 1 appl topical BID 30 Days Qty: 1 RF: 0 duloxetine 20 mg Capsule,Delayed Release(Dr/Ec) 20 mg PO DAILY 30 Days Qty: 30 RF: 0 clonazepam [Klonopin] 0.5 mg Tablet 0.5 mg PO BID PRN (Reason: Anxiety) 30 Days Qty: 15 RF: 0 escitalopram oxalate 10 mg Tablet 10 mg PO DAILY@0730 5 Days Qty: 5 RF: 0 Referrals: Chi Gabriel [Physician] - 2 days Interventions: ED Discharge Assessment Last Done: 08/11/20 12:57 Discharge Date/Time: 08/11/20 12:58
[2020-08-11] MEDS: Diphth,Pertus(ACell),Tet Adult 0.5 ML SYRINGE IM (12:52)
[2020-08-11] MEDS: Erythromycin Base 0.5% Oph Oin 1 GM TUBE 1 CM EYE-RIGHT (12:52)
== END 2020-08-11 12:58 | disposition home or self-care (01) ==
PROVIDERS: Emergency Provider Emergency Medicine
DX: S05.01XA Injury of conjunctiva and corneal abrasion without foreign body, right eye, initial encounter (principal); W22.8XXA Striking against or struck by other objects, initial encounter; Y93.9 Activity, unspecified; Y92.9 Unspecified place or not applicable; Y99.9 Unspecified external cause status
CPT/HCPCS: 90471; 90715; 99284

== ENCOUNTER 2021-11-11 08:53 | Emergency (ER) | payer OTHER, SELFPAY ==
[2021-11-11 09:32] VITALS: BP 141/76; PULSE 73; RESP 18; TEMP 36.4; O2SAT 98; BMI 28.7
[2021-11-11 09:57] LABS: MANUAL DIFF FLAG NO
[2021-11-11 09:58] LABS: Basophils Absolute Auto 0.1 X10*3/uL (0.0-0.2); Basophils Percent Auto 0.8 % (0-2); Eosinophils Percent Auto 0.4 % (0-4); Hematocrit 43.3 % (42.0-52.0); Hemoglobin 14.4 g/dl (14.0-18.0); Imm Gran Abs Auto 0.02 X10*3/uL (0.00-0.03); Imm Gran Pct Auto 0.3 % (0.0-0.4); Lymphocytes Absolute Auto 1.8 X10*3/uL (1.2-4.9); Lymphocytes Percent Auto 22.7 % (20-40); Mean Corpuscular HGB Conc 33.3 g/dl (31.0-36.0); Mean Corpuscular Hemoglobin 28.7 pg (27.0-33.0); Mean Corpuscular Volume 86.3 fL (80.0-98.0); Mean Platelet Volume 9.5 fL (9.4-12.4); Monocytes Absolute Auto 0.4 X10*3/uL (0.1-1.2); Neutrophils Absolute Auto 5.6 x10*3/uL (2.0-8.3); Neutrophils Percent Auto 70.8 % (45-73); Platelet Count 296 X10*3/uL (160-400); Red Blood Count 5.02 X10*6/uL (4.60-5.80); Red Cell Distribution Width 13.7 % (11.0-16.0)
[2021-11-11 10:17] LABS: Anion Gap 18 (12-20); Blood Urea Nitrogen 10 mg/dL (9-16); Calcium 9.4 mg/dL (8.4-10.2); Carbon Dioxide 20 mmol/L (22-29); Chloride 105 mmol/L (96-108); Creatinine Clr Calc Pharmacy 116.7; Estimated Glomerular Filt Rate > 60; Glucose Random 97 mg/dL (60-115); Potassium 4.3 mmol/L (3.3-5.1); Sodium 139 mmol/L (135-145)
[2021-11-11 11:39] LABS: Alanine Aminotransferase 18 U/L (0-40); Albumin Level 4.4 g/dL (3.5-5.0); Alkaline Phosphatase 73 U/L (39-117); Aspartate Amino Transferase 19 U/L (5-37); Bilirubin Direct 0.2 mg/dL (0.0-0.5); Bilirubin Total 0.4 mg/dL (0.0-1.0); Lipase 20 U/L (8-78); Total Protein 7.3 g/dL (6.5-8.0)
== END 2021-11-11 22:37 | disposition left against medical advice (07) ==
PROVIDERS: Emergency Medicine; Emergency Provider Emergency Medicine
DX: R19.7 Diarrhea, unspecified (principal); R10.13 Epigastric pain; Z79.899 Other long term (current) drug therapy
CPT/HCPCS: 36415; 80048; 80076; 83690; 85025; 99281; 99283

== ENCOUNTER 2023-08-21 23:47 | Emergency (ER) | payer OTHER, SELFPAY ==
--- NOTE | ~2023-08-21 | CT_ITS ---
EXAMINATION: CT ABDOMEN AND PELVIS WITH CONTRAST CLINICAL INFORMATION: Diffuse abdominal pain. Swelling. Tenderness. Vomiting. COMPARISON: None available. TECHNIQUE: Multidetector volumetric images were obtained from the superior aspect of the liver through the pubic symphysis following administration 100 mL of Omnipaque 350 intravenous contrast. Sagittal and coronal reformatted images were obtained on the technologist's workstation. Oral contrast: No This CT examination was performed using dose optimization techniques as appropriate, variously including the following: *Automated exposure control *Adjustment of mA and/or kV according to patient size (this includes techniques or standardized protocols for targeted exams where dose is matched to indication/reason for exam; i.e. extremities or head) *Use of iterative reconstruction technique DLP: 744 mGy-cm FINDINGS: LUNG BASES: The visualized lung bases are unremarkable. LIVER, GALLBLADDER, AND BILIARY TREE: Multiple calcified gallstones are present in the gallbladder lumen ranging in size up to approximately 2.5 cm in diameter. No pericholecystic fluid collections identified. No biliary duct dilatation visualized. The liver is normal in appearance. PANCREAS: Unremarkable. SPLEEN: Unremarkable. ADRENAL GLANDS: Unremarkable. KIDNEYS AND URETERS: The kidneys are normal in size, shape, and attenuation. No hydronephrosis, hydroureter, or calculi seen. No perinephric stranding. BLADDER: Unremarkable. GASTROINTESTINAL TRACT: Moderate sigmoid diverticulosis. Normal appearance of the appendix. No free intraperitoneal fluid or gas collections. Normal appearance of the stomach and duodenum. ABDOMINAL WALL: Periumbilical hernia containing omental fat measures 2.8 cm in diameter and demonstrates reticulation of the associated herniated fat which may represent acute inflammatory changes. (Series 3 image 58). LYMPH NODES: Normal. VASCULAR: Mild scattered calcific atherosclerosis. PELVIC VISCERA: Unremarkable. OSSEOUS STRUCTURES: Multilevel thoracolumbar endplate osteophytosis. Moderate intervertebral disc space narrowing and vacuum phenomena L4-L5. No vertebral body compression deformities. CT/CT abdomen pelvis w IV con IMPRESSION: *2.8 cm periumbilical hernia containing omental fat with inflammatory changes of the omental fat. Findings may be acute or chronic. No herniated intestinal segments. *Cholelithiasis. No biliary duct dilatation or pericholecystic inflammatory changes identified. *Moderate sigmoid diverticulosis. No evidence of acute diverticulitis. *Multilevel chronic thoracolumbar spondylosis. Fleischner guidelines were followed.
[2023-08-22 00:26] VITALS: BP 165/81; PULSE 66; RESP 24; TEMP 36.6; O2SAT 97; BMI 30.8
[2023-08-22 01:23] LABS: MANUAL DIFF FLAG NO
[2023-08-22 01:25] LABS: Basophils Absolute Auto 0.1 X10*3/uL (0.0-0.2); Basophils Percent Auto 0.6 % (0-2); Eosinophils Absolute Auto 0.4 X10*3/uL (0.0-0.4); Eosinophils Percent Auto 2.8 % (0-4); Hematocrit 43.3 % (42.0-52.0); Hemoglobin 14.6 g/dl (14.0-18.0); Imm Gran Abs Auto 0.05 X10*3/uL (0.00-0.03); Imm Gran Pct Auto 0.4 % (0.0-0.4); Lymphocytes Percent Auto 15.6 % (20-40); Mean Corpuscular HGB Conc 33.7 g/dl (31.0-36.0); Mean Corpuscular Hemoglobin 30.4 pg (27.0-33.0); Mean Platelet Volume 9.4 fL (9.4-12.4); Monocytes Absolute Auto 0.7 X10*3/uL (0.1-1.2); Monocytes Percent Auto 5.7 % (2-11); Neutrophils Absolute Auto 9.5 x10*3/uL (2.0-8.3); Neutrophils Percent Auto 74.9 % (45-73); Platelet Count 285 X10*3/uL (160-400); Red Blood Count 4.81 X10*6/uL (4.60-5.80); Red Cell Distribution Width 13.3 % (11.0-16.0); White Blood Count 12.7 X10*3/uL (4.8-10.8)
--- OUTSIDE RECORDS SUMMARY | 2023-08-22 01:41 | XMS_ITS | Continuity of Care Document ---
Author Organization [facility] Address [address] [place] [id number]- Care Team Providers Care Marketing Services Vice President Name Role Phone MD Sharp Nathaniel Primary Care Physician Encounter [facility] Date(s): 12/05/21 - 01/04/22 [facility] [address] [place] [id number]- Allergies, Adverse Reactions, Alerts Substance Reaction Severity Status Bee Stings Active Medications Lacri-Lube S.O.P. - ointment 1 application, Eyes, Both, Daily at bedtime, PRN for dry eyes, # 3.5 Gm, 0 Refills, Maintenance, Ointment Start Date: 07/13/10 Status: Ordered Medrol Dosepak 4 mg oral tablet 1 pack/packet, By Mouth, Once, as directed on package labeling, # 21 tablet, 0 Refills, Soft Stop, 06/02/14 21:54:46, Tablet Start Date: 06/02/14 Status: Ordered Paxil 20 mg oral tablet 1 tablet = 20 mg, By Mouth, Daily, # 30 tablet, 0 Refills, Maintenance, Tablet Start Date: 07/14/11 Status: Ordered Percocet-5/325 325 mg-5 mg oral tablet 1 tablet, By Mouth, Every 4 hours, PRN Pain, # 15 tablet, 0 Refills, Maintenance Start Date: 07/13/10 Status: Ordered Patient Care team information Care Team Personnel Name: MD Sharp Nathaniel Position: S ASSISTANT MANAGER BILINGUAL MD Member Role: PCP Address: Address: [address] [place] [id number]- Care Team Related Persons Name: ROSEANNA VILLA Address: [place] [address] Name: KALANI VILLA Address: [place] [address]
--- OUTSIDE RECORDS SUMMARY | 2023-08-22 01:41 | XMS_ITS | Continuity of Care Document ---
Author Organization [facility] Address [address] [place] [id number]- Care Team Providers Care Proofer Black And White Name Role Phone MD Sharp Nathaniel Primary Care Physician Encounter [facility] Date(s): 01/30/22 - 03/01/22 [facility] [address] [place] [id number]- Attending Physician: Vanessa Powell Admitting Physician: Vanessa Powell Referring Physician: Vanessa Powell Allergies, Adverse Reactions, Alerts Substance Reaction Severity Status Bee Stings Active Medications duloxetine 20 mg oral enteric coated capsule 1 capsule = 20 mg, By Mouth, 2 times a day, # 180 capsule, 0 Refills, Maintenance, 01/30/22 12:37:00 EST, EC Capsule, Partial fill upon patient request if the prescription is for a schedule II opioiddrug. Start Date: 01/30/22 Status: Ordered NuLYTELY Lemon Napaimute oral powder for reconstitution 240 mL, By Mouth, Daily, bowel preparation for colonoscopy, # 4,000 mL, 0 Refills, Maintenance, 01/30/22 13:02:00 EST, REC Powder, [facility]/pharmacy #[id number], Partial fill upon patient request if the prescription is for a schedule II opioid drug., 178, cm, 12... Start Date: 01/30/22 Status: Ordered Trazodone By Mouth, 0 Refills, Maintenance, 01/30/22 12:38:00 EST, Partial fill upon patient request if the prescription is for a schedule II opioid drug. Start Date: 01/30/22 Status: Ordered vortioxetine 10 mg oral tablet 1 tablet = 10 mg, By Mouth, Daily, # 30 tablet, 0 Refills, Maintenance, 02/03/22 10:05:00 EST, Tablet, Partial fill upon patient request if the prescription is for a schedule II opioid drug. Start Date: 02/03/22 Status: Ordered Problem List Condition Confirmation Course Effective Dates Status Health St atus Informant Obese class I Confirmed Active Patient Care team information Care Team Personnel Name: MD Sharp Nathaniel Position: [facility] BINDING STITCHER MD Member Role: PCP Address: Address: [address] [place] [phone]- Care Team Related Persons Name: ROSEANNA VILLA Address: [place] [address] Name: KALANI VILLA Address: [place] [address]
[2023-08-22 01:45] LABS: Alanine Aminotransferase 18 U/L (0-40); Albumin Level 4.1 g/dL (3.5-5.0); Alkaline Phosphatase 63 U/L (39-117); Anion Gap 14 (12-20); Aspartate Amino Transferase 14 U/L (5-37); Bilirubin Direct < 0.2 mg/dL (0.0-0.5); Bilirubin Total 0.1 mg/dL (0.0-1.0); Blood Urea Nitrogen 19 mg/dL (9-16); Calcium 9.1 mg/dL (8.4-10.2); Carbon Dioxide 25 mmol/L (22-29); Chloride 106 mmol/L (96-108); Creatinine Clr Calc Pharmacy 116.3; Estimated Glomerular Filt Rate > 60; Glucose Random 117 mg/dL (60-115); Lipase 23 U/L (8-78); Potassium 3.8 mmol/L (3.3-5.1); Sodium 141 mmol/L (135-145); Total Protein 7.1 g/dL (6.5-8.0)
[2023-08-22 03:20] VITALS: BP 172/73; PULSE 58; RESP 16; TEMP 36.7; O2SAT 99
--- NOTE | 2023-08-22 04:04 | ED.GENADULT ---
HPI - General Adult General Chief complaint: Abdominal Pain Stated complaint: hernia Time Seen by Provider: 08/22/23 04:04 History of Present Illness ED Provider: Dario ZAVALA narrative: The patient is a 57-year-old male who says that he has a history of an umbilical hernia that he has known about for months if not longer. He feels that the hernia pops out frequently. He says that he last push the hernia in yesterday. Today he feels he has had increasing periumbilical discomfort that was ultimately associated with nausea and vomiting. The nausea and vomiting also caused upper abdominal and chest pain. No definite fever. Related Data Previous Rx's ?Medication ?Instructions ?Recorded clonazepam 0.5 mg tablet (Klonopin) 0.5 mg PO BID PRN Anxiety 30 days 01/04/20 #15 tabs duloxetine 20 mg capsule,delayed 20 mg PO DAILY 30 days #30 caps 01/04/20 release escitalopram oxalate 10 mg tablet 10 mg PO DAILY@0730 5 days #5 tabs 01/04/20 hydrocortisone 1 % topical cream 1 appl topical BID 30 days #10 01/04/20 grams olanzapine 2.5 mg tablet 2.5 mg PO BID PRN 01/04/20 Anxiety/Restlessness 30 days #60 tabs white petrolatum-mineral oil 1 appl topical BID 30 days #1 kit 01/04/20 topical cream (Dermacerin topical cream) erythromycin 5 mg/gram (0.5 %) eye 0.5 inch ophthalmic-Right BID 7 08/11/20 ointment days #1 g Allergies Allergy/AdvReac Type Severity Reaction Status Date / Time bee pollen [BEE STINGS] Allergy Severe SWELLING Verified 08/22/23 00:29 Review of Systems Review of Systems: Yes all other systems are reviewed and are negative [facility] Past Medical History Medical History Anxiety Arthritis Surgical History Hx of tonsillectomy Social History Social History Household Members: Spouse Housing: Unknown / Unable to assess Alcohol intake: former Comment: Calm and cooperative Cigarette Packs Per Day: 1 Cigarettes Per Day: 20.0 Years Smoked: 40 Smoked in Last 30 Days: No Second Hand Smoke Exposure: No Use of substances other than those prescribed or required for medical reasons: No Advance Directives: No Advance Directives Information Provided: No Do you have a plan to hurt others: No Plan service: Yes Sexual orientation: Straight/Heterosexual Physical Exam ED Vital Signs: Vital Signs - 24 hr 08/22/23 04:55 08/22/23 06:39 Temperature 98.4 F 98.4 F Pulse Rate 61 61 Respiratory Rate 16 16 Blood Pressure 162/82 H 162/82 H Pulse Oximetry 97 97 Oxygen Delivery Method Room Air Room Air BMI result Body Mass Index 30.8 Const Other: The patient was awake and alert. He seemed uncomfortable. HENMT Other: Face is symmetrical. Mucous membranes moist. Eyes Other: Pupils are round equal, conjunctivae are clear Neck Neck: Yes no JVD Resp Effort & Inspection: normal respiratory effort Auscultation: clear to auscultation bilaterally Cardio Rate: regular rate Rhythm: regular rhythm Heart sounds: S1 normal heart sound present and S2 normal heart sound present GI Other: There was an obvious area of focal swelling near the umbilicus associated with some mild discoloration of the skin. On palpation the swelling did not seem particularly firm. It seemed soft but tender. I felt I was able to reduce the swelling and was then able to palpate the contours of the umbilical hernia. The remainder of the abdomen was nontender. Skin Other: There was initially some umbilical swelling and mild discoloration. The rest of the skin was pale and unremarkable. Neuro Other: The patient was awake and alert with a normal mental status. Cranial nerves are grossly intact. He moves his extremities normally and was grossly neurologically intact. Extrem Other: No peripheral edema Medications Administered Discontinued Medications Generic Name Dose Route Start Last Admin Trade Name Freq PRN Reason Stop Dose Admin Droperidol 1.25 mg 08/22/23 04:10 08/22/23 04:30 Droperidol 5 Mg/2 Ml Vial IVPUSH 08/22/23 04:11 1.25 mg ONCE ONE Administration Sodium Chloride 1,000 mls @ 999 mls/hr 08/22/23 04:15 08/22/23 04:30 Ns IV 08/22/23 05:15 999 mls/hr .Q1H1M KATHERINE Administration Iohexol 85 ml 08/22/23 04:46 08/22/23 04:48 Iohexol 350 Mg/Ml 100 Ml Infus..Btl IV 08/22/23 04:47 85 ml ONCE ONE Administration Ketorolac Tromethamine 15 mg 08/22/23 05:11 08/22/23 05:15 Ketorolac Tromethamine 15 Mg/Ml Vial IVPUSH 08/22/23 05:12 15 mg ONCE ONE Administration Medical Decision Making Medical Decision Making [facility] Narrative: The patient presents with abdominal discomfort, nausea, and vomiting in association with what seems to be a fairly longstanding umbilical hernia. My initial exam there was a suggestion that the hernia was significantly protruding at the umbilicus. I laid the patient flat and applied pressure to the hernia while the patient was asked to take slow deep breaths. The hernia seemed tender but not particularly firm and I was able to reduce everything that I thought was the hernia. This did not seem to produce immediate relief for the patient and so he was sent for a CT scan of the abdomen and pelvis. The CT scan shows fatty material within the hernia but no bowel. Fat showed some signs of inflammation. On re-examination the patient no longer seemed to have a hernia mass at the umbilicus. Ultimately the patient seemed to feel significantly better. There did not seem to be a re-emergence of the hernia. Since the patient was feeling better I do not feel there is an acute surgical emergency at this point and I think the patient may be discharged. He has not yet seen a surgeon about this hernia. He gets his primary care through the [place]. He will be given the name and number of the on-call surgeon sujey. He is uncertain whether he will have to seek care through the [place] system. He will contact his [place] doctor on Wednesday for additional advice about follow up with a surgeon. I explained to the patient how he could reduce his hernia if he feels it is active in the future. Lab Data 08/22/23 01:19 08/22/23 01:19 Labs: Lab Results 08/22/23 08/22/23 Range/Units 01:19 05:37 WBC 12.7 H (4.8-10.8) X10*3/uL RBC 4.81 (4.60-5.80) X10*6/uL Hgb 14.6 (14.0-18.0) g/dl Hct 43.3 (42.0-52.0) % MCV 90.0 (80.0-98.0) fL MCH 30.4 (27.0-33.0) pg MCHC 33.7 (31.0-36.0) g/dl RDW 13.3 (11.0-16.0) % Plt Count 285 (160-400) X10*3/uL MPV 9.4 (9.4-12.4) fL Immature Gran % (Auto) 0.4 (0.0-0.4) % Neut % (Auto) 74.9 H (45-73) % Lymph % (Auto) 15.6 L (20-40) % [place] % (Auto) 5.7 (2-11) % Eos % (Auto) 2.8 (0-4) % Baso % (Auto) 0.6 (0-2) % Lymph # (Auto) 2.0 (1.2-4.9) X10*3/uL [place] # (Auto) 0.7 (0.1-1.2) X10*3/uL Eos # (Auto) 0.4 (0.0-0.4) X10*3/uL Baso # (Auto) 0.1 (0.0-0.2) X10*3/uL Abs Immat Gran (auto) 0.05 H (0.00-0.03) X10*3/uL Absolute Neuts (auto) 9.5 H (2.0-8.3) x10*3/uL Absolute Nucleated RBC 0.000 (0.0-0.012) X10*3/uL Nucleated RBC % (auto) 0.0 (0.0-0.2) /100WBC Sodium 141 (135-145) mmol/L Potassium 3.8 (3.3-5.1) mmol/L Chloride 106 (96-108) mmol/L Carbon Dioxide 25 (22-29) mmol/L Anion Gap 14 (12-20) BUN 19 H (9-16) mg/dL Creatinine 0.82 (0.5-1.4) mg/dL Estim Creat Clear Calc 116.3 Estimated GFR > 60 Random Glucose 117 H (60-115) mg/dL Calcium 9.1 (8.4-10.2) mg/dL Total Bilirubin 0.1 (0.0-1.0) mg/dL Direct Bilirubin < 0.2 (0.0-0.5) mg/dL AST 14 (5-37) U/L ALT 18 (0-40) U/L Alkaline Phosphatase 63 (39-117) U/L C-Reactive Protein 0.60 H (< or = 0.50) mg/dL Total Protein 7.1 (6.5-8.0) g/dL Albumin 4.1 (3.5-5.0) g/dL Lipase 23 (8-78) U/L Urine Color Yellow Urine Appearance Clear Urine pH 8.5 (5.0-9.0) Ur Specific [place] >= 1.030 H (1.005-1.025) Urine Protein Negative (Neg-Trace) mg/dL Urine Glucose (UA) Negative (Negative) mg/dL Urine Ketones Negative (Negative) mg/dL Urine Blood Negative (Negative) Urine Nitrite Negative (Negative) Ur Leukocyte Esterase Negative (Negative) Discharge Plan Discharge Clinical Impression: Umbilical hernia, Vomiting Patient Disposition: Home, Self-Care Instructions: Umbilical Hernia (ED) Additional Instructions: You seemed to have symptoms related to your hernia tonight. Your hernia was pushed back in, and this seems to have helped your symptoms. Given the degree of symptoms you had tonight I think you need to follow up soon with a surgeon to discuss having a repair of your hernia. Please contact your regular doctor at the [place] tomorrow morning to discuss a surgical referral. I have given you the name and number of the on-call surgeon at this hospital tonight. You may contact them also. If at any point you feel you have a problem with the hernia again you may try to address it by lying on the ground and taking slow deep breaths and applying gentle pressure with your fingers to the hernia. If you are not able to reduce your hernia at home and continue to have symptoms please return to the emergency room for further evaluation here. Prescriptions: No Action olanzapine 2.5 mg Tablet 2.5 mg PO BID PRN (Reason: Anxiety/Restlessness) 30 Days Qty: 60 0RF Rx Instructions: 2.5 mg orally as needed hydrocortisone 1 % Cream 1 appl topical BID 30 Days Qty: 10 0RF Protocol: Apply to: Apply to: affected areas Dermacerin Cream 1 appl topical BID 30 Days Qty: 1 0RF duloxetine 20 mg Capsule,Delayed Release(Dr/Ec) 20 mg PO DAILY 30 Days Qty: 30 0RF clonazepam [Klonopin] 0.5 mg Tablet 0.5 mg PO BID PRN (Reason: Anxiety) 30 Days Qty: 15 0RF Rx Instructions: Use sparingly and responsibly. will monitor and dispense escitalopram oxalate 10 mg Tablet 10 mg PO DAILY@0730 5 Days Qty: 5 0RF Rx Instructions: DC after 5 days erythromycin 5 mg/gram (0.5 %) ointment 0.5 inch ophthalmic-Right BID 7 Days Qty: 1 0RF Referrals: Darryl Catalan PA [Primary Care Provider] - (Umbilical hernia, needs surgical referral) Yana Puckett MD [Physician] - (symptomatic umbilical hernia) Interventions: ED Discharge Assessment Last Done: 08/22/23 06:39 Discharge Date/Time: 08/22/23 06:40 Print Language: Sinhala
--- NOTE | 2023-08-22 04:11 | ECG_ITS ---
Test Reason : CHEST PAIN/ABD PAIN Blood Pressure : / mmHG Vent. Rate : 057 BPM Atrial Rate : 057 BPM P-R Int : 154 ms QRS Dur : 108 ms QT Int : 438 ms P-R-T Axes : 039 074 074 degrees QTc Int : 426 ms Sinus bradycardia Otherwise normal ECG When compared with ECG of 01-JAN-2020 07:52, No significant change was found Referred By: Rigoberto Bishop Electronically Signed By:KIERSTEN GONZALES
[2023-08-22] MEDS: droPERidol 5 MG/2 ML VIAL 1.25 MG IVPUSH (04:30)
[2023-08-22] MEDS: 0.9 % Sodium Chloride 1,000 ML 999 ML IV (04:30)
[2023-08-22] MEDS: iohexoL 350 MG/ML 100 ML INFUS..BTL 85 ML IV (04:48)
[2023-08-22 04:55] VITALS: BP 162/82; PULSE 61; RESP 16; TEMP 36.9; O2SAT 97
[2023-08-22] MEDS: Ketorolac Tromethamine 15 MG/ML VIAL IVPUSH (05:15)
[2023-08-22 05:42] LABS: Appearance Urine Clear; Color Urine Yellow; Glucose Urine UA Negative (Negative); Leukocyte Esterase Urine Negative (Negative); Nitrite Urine Negative (Negative); PH 8.5 (5.0-9.0); Specific Gravity - Urine >= 1.030 (1.005-1.025); Urine Blood Negative (Negative); Urine Ketones Negative (Negative); Urine Protein Negative (Neg-Trace)
[2023-08-22 06:39] VITALS: BP 162/82; PULSE 61; RESP 16; TEMP 36.9; O2SAT 97
== END 2023-08-22 06:40 | disposition home or self-care (01) ==
PROVIDERS: Emergency Provider Emergency Medicine; PCP Physician Assistant Medical
DX: K42.9 Umbilical hernia without obstruction or gangrene (principal); R11.10 Vomiting, unspecified; R10.33 Periumbilical pain; R07.9 Chest pain, unspecified
CPT/HCPCS: 36415; 74177; 80048; 80076; 81003; 83690; 85025; 86140; 93005; 96374; 96375; 99284; 99285; J1790; J1885; Q9967

== ENCOUNTER → 2023-08-22 04:11 | Outpatient (BNV) | payer OTHER, SELFPAY | PROVIDERS: Emergency Provider Emergency Medicine; PCP Physician Assistant Medical; Visit Provider Internal Medicine | DX: R07.9 Chest pain, unspecified (principal) | CPT/HCPCS: 93010 ==

== ENCOUNTER 2023-09-19 08:43 | Emergency (ER) | payer OTHER, SELFPAY ==
[2023-09-19 08:57] VITALS: BP 139/74; PULSE 77; RESP 16; TEMP 36.7; O2SAT 99; BMI 30.5
--- OUTSIDE RECORDS SUMMARY | 2023-09-19 09:13 | XMS_ITS | Continuity of Care Document ---
Author Organization [facility] Address [address] [place] [id number]- Care Team Providers Care Loading Unit Operator Seating Name Role Phone MD Sharp Nathaniel Primary Care Physician Encounter [facility] Date(s): 12/08/21 - 01/07/22 [facility] [address] [place] [id number]- Allergies, Adverse Reactions, Alerts Substance Reaction Severity [...] Personnel Name: MD Sharp Nathaniel Position: S PAYROLL SPECIALIST MD Member Role: PCP Address: Address: [address] [place] [id number]- Care Team Related Persons Name: ROSEANNA VILLA Address: [place] [address] Name: KALANI VILL[place] Address: [place] [address]
--- NOTE | 2023-09-19 09:19 | ED_ITS ---
HPI - Skin/Abscess/Foreign Bdy General Chief complaint: Skin/Abscess/Foreign Body Stated complaint: RT hand pain/swelling Time Seen by Provider: 09/19/23 09:07 Source: patient Mode of arrival: ambulatory Limitations: no limitations History of Present Illness ED Provider: Gabriela Hendrix APRN HPI narrative: 57-year-old male with a history of anxiety, depression, atopic dermatitis presents the ER with complaints of pain and swelling to his right hand. Patient reports he has a history of eczema on both of his hands which he has had for many months. Has intermittently tried topical steroids. He is using an [id number] topical steroid right now which he does not recall the name of. [facility] and is currently taking prednisone 10 mg daily. He is waiting to be seen by a assembler fluorescent lights. He noted over the last few days at the areas do seem to be more painful and more swollen he is concerned he may have a bacterial infection. Of note he does work in a job that requires him to use gloves. He reports he has non latex cotton gloves. He does report some drainage from the right hand specifically which appears clear. He does have some itching. He denies fevers or chills Related Data Previous Rx's ?Medication ?Instructions ?Recorded clonazepam 0.5 mg tablet (Klonopin) 0.5 mg PO BID PRN Anxiety 30 days 01/04/20 #15 tabs duloxetine 20 mg capsule,delayed 20 mg PO DAILY 30 days #30 caps 01/04/20 release escitalopram oxalate 10 mg tablet 10 mg PO DAILY@0730 5 days #5 tabs 01/04/20 hydrocortisone 1 % topical cream 1 appl topical BID 30 days #10 01/04/20 grams olanzapine 2.5 mg tablet 2.5 mg PO BID PRN 01/04/20 Anxiety/Restlessness 30 days #60 tabs white petrolatum-mineral oil 1 appl topical BID 30 days #1 kit 01/04/20 topical cream (Dermacerin topical cream) erythromycin 5 mg/gram (0.5 %) eye 0.5 inch ophthalmic-Right BID 7 08/11/20 ointment days #1 g cephalexin 500 mg capsule 500 mg PO BID #14 caps 09/19/23 hydrocortisone 1 % topical ointment 1 appl topical TID PRN rash #453.6 09/19/23 grams Allergies Allergy/AdvReac Type Severity Reaction Status Date / Time bee pollen [BEE STINGS] Allergy Severe SWELLING Verified 09/19/23 09:03 Review of Systems 2 Review of Systems: Yes all other systems are reviewed and are negative Constitutional: Constitutional: Reports no additional constitutional complaints, Denies body ache(s), Denies chills, Denies fever(s), Denies headache(s) and Denies weakness Eyes: Eyes: Reports no additional eye complaints and Denies change in vision ENT: Reports system reviewed and no additional complaints, except as documented, Denies dizziness, Denies headache(s), Denies nasal congestion, Denies nasal discharge and Denies neck pain Cardiovascular: Cardiovascular: Reports no additional cardiovascular complaints, Denies chest pain, Denies leg edema and Denies dyspnea Respiratory: Respiratory: Reports no additional respiratory complaints, Denies cough and Denies dyspnea Gastrointestinal: Gastrointestinal: Reports no additional gastrointestinal complaints, Denies abdominal pain, Denies diarrhea, Denies nausea and Denies vomiting Genitourinary: Genitourinary: Denies urinary incontinence Musculoskeletal: Musculoskeletal: Reports no additional musculoskeletal complaints, Denies back pain, Denies arthralgias, Denies joint swelling, Denies neck pain, Denies numbness and Denies tingling Integumentary/Breasts: Skin/Breast: Reports system reviewed and no additional complaints, except as docu, Reports swelling, Reports erythema and Reports rash Neurologic: Reports system reviewed and no additional complaints, except as documented, Denies Abnormal speech present, Denies dizziness, Denies headache(s), Denies numbness, Denies tingling and Denies weakness [facility] Past Medical History Attestation statement: The following information was validated with the patient. Source: old records reviewed and nursing notes reviewed Medical History Anxiety Arthritis Surgical History Hx of tonsillectomy Social History Social History Household Members: Spouse Housing: Unknown / Unable to assess Alcohol intake: former Comment: Calm and cooperative Cigarette Packs Per Day: 1 Cigarettes Per Day: 20.0 Years Smoked: 40 Second Hand Smoke Exposure: No Advance Directives: No Advance Directives Information Provided: No service: Yes Sexual orientation: Straight/Heterosexual Physical Exam 2 Vital Signs: Vital Signs: Last Vital Signs Temp 98.1 F 09/19/23 10:03 Pulse 72 09/19/23 10:03 Resp 18 09/19/23 10:03 BP 129/71 09/19/23 10:03 Pulse Ox 96 09/19/23 10:03 O2 Del Method Room Air 09/19/23 10:03 BMI result Body Mass Index 30.5 Const: General: cooperative, healthy appearing, comfortable and no acute distress Orientation/consciousness: patient oriented x3 Limitations: no limitations HEENT: Head: Yes normal to inspection Ears: hearing grossly normal bilaterally General nose exam: Normal external nose present Face and sinus: Yes normal facial exam Mouth: Normal oral and palatal mucosa present Throat: Yes posterior oropharynx normal Eyes: General: appearance normal, both eyes and all related structures P upils: Equal, round and reactive pupils present Neck: Neck: Yes normal visual inspection Chest: Chest palpation & inspection: normal inspection of the chest Resp: Effort & Inspection: normal respiratory effort Auscultation: clear to auscultation bilaterally Cardio: Rate: regular rate Rhythm: regular rhythm Peripheral pulses: P eripheral pulses 2+ throughout GI: Inspection: Yes normal to inspection Palpation (GI): Soft to palpation and nontender Auscultation: normal bowel sounds Back/Spine/Pelvis: Thoracic/Lumbar Spine: thoracic and lumbar spine normal to inspection Skin: General skin exam: no rashes or lesions noted Neuro: General: patient oriented x3, no focal motor deficits and normal sensation to monofilament Cranial nerves: Yes Equal, round and reactive pupils present Cognition (Neuro): normal cognition Speech: No Abnormal speech present Gait exam (Neuro): Normal gait present Motor exam (neuro): 5/5 motor strength present throughout Extrem: Other: Full range of motion General: Yes normal to inspection Medical Decision Making Medical Decision Making MDM Narrative: 57-year-old male with a history of anxiety, depression, atopic dermatitis presents the ER with complaints of pain and swelling to his right hand. Patient reports he has a history of eczema on both of his hands which he has had for many months. Has intermittently tried topical steroids. He is using an gvuc-kbv-[id number] topical steroid right now which he does not recall the name of. [facility] and is currently taking prednisone 10 mg daily. He is waiting to be seen by a assembler fluorescent lights. He noted over the last few days at the areas do seem to be more painful and more swollen he is concerned he may have a bacterial infection. Of note he does work in a job that requires him to use gloves. He reports he has non latex cotton gloves. He does report some drainage from the right hand specifically which appears clear. He does have some itching. He denies fevers or chills. Exam is consistent with eczema flare. May have superimposed cellulitis although patient is nontoxic, well-appearing. Will recommend he continue prednisone. Will add oral antibiotic and topical steroid. Recommend he follow up outpatient with Dermatology Differential Diagnosis Differential Diagnoses: The differential diagnosis associated with the presentation includes Atopic dermatitis, cellulitis Admission/Observation Consideration of admission/observation: Escalation of care including admission/observation considered May have superimposed cellulitis. No need for inpatient admission for IV antibiotics as patient is overall nontoxic with no fever and benign exam Prescription Management I considered prescription management with: Antibiotic Discharge Plan Discharge Clinical Impression: Atopic dermatitis Patient Disposition: Home, Self-Care Instructions: Eczema (ED) Additional Instructions: Continue prednisone Use the topical steroid that we are prescribing and mixed this with a [id number] Neosporin or Polysporin Take the antibiotics as prescribed Follow-up with dermatology. Consider calling [facility] in [place] [phone] Prescriptions: New hydrocortisone 1 % ointment 1 appl topical TID PRN (Reason: rash) Qty: 453.6 0RF cephalexin 500 mg capsule 500 mg PO BID Qty: 14 0RF No Action olanzapine 2.5 mg Tablet 2.5 mg PO BID PRN (Reason: Anxiety/Restlessness) 30 Days Qty: 60 0RF Rx Instructions: 2.5 mg orally as needed hydrocortisone 1 % Cream 1 appl topical BID 30 Days Qty: 10 0RF Protocol: Apply to: Apply to: affected areas Dermacerin Cream 1 appl topical BID 30 Days Qty: 1 0RF duloxetine 20 mg Capsule,Delayed Release(Dr/Ec) 20 mg PO DAILY 30 Days Qty: 30 0RF clonazepam [Klonopin] 0.5 mg Tablet 0.5 mg PO BID PRN (Reason: Anxiety) 30 Days Qty: 15 0RF Rx Instructions: Use sparingly and responsibly. will monitor and dispense escitalopram oxalate 10 mg Tablet 10 mg PO DAILY@0730 5 Days Qty: 5 0RF Rx Instructions: DC after 5 days erythromycin 5 mg/gram (0.5 %) ointment 0.5 inch ophthalmic-Right BID 7 Days Qty: 1 0RF Interventions: ED Discharge Assessment Last Done: 09/19/23 10:03 Discharge Date/Time: 09/19/23 10:09 Print Language: Panamanian
[2023-09-19 10:03] VITALS: BP 129/71; PULSE 72; RESP 18; TEMP 36.7; O2SAT 96
== END 2023-09-19 10:09 | disposition home or self-care (01) ==
PROVIDERS: Emergency Provider Emergency Medicine; PCP Physician Assistant Medical
DX: L20.9 Atopic dermatitis, unspecified (principal)
CPT/HCPCS: 99282

== ENCOUNTER 2023-09-21 12:40 | Outpatient (AMB) | payer OTHER, SELFPAY ==
--- NOTE | 2023-09-21 13:00 | A.OFFVIS_ITS ---
Intake Visit Reasons: hernia Intake Note: Patient referred after being seen at ER on 08-22-23 for hernia. Present for months. Patient c/o: bulge coming out from belly button area. 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 It is increasing in size, and he would like to have it repaired. No other significant GI issues or complaints although patient has history of irritable bowel syndrome. He does no heavy lifting at work. Chart was reviewed and patient evaluate [facility] Medical History (Updated 09/21/23 @ 13:06 by CHI Anderson) Right groin hernia Anxiety Arthritis Surgical History (Updated 09/21/23 @ 13:14 by Lalo Abraham MD) Hx of tonsillectomy Social History (Updated 09/21/23 @ 13:06 by CHI Anderson) Household Members: Spouse Housing: Unknown / Unable to assess Alcohol intake: former Comment: Calm and cooperative Tobacco use type: Cigarette Cigarette Packs Per Day: 1 Cigarettes Per Day: 20.0 Years Smoked: 40 Second Hand Smoke Exposure: No service: Yes Sexual orientation: Straight/Heterosexual Physical Exam Chest Other: Chest breath sounds bilaterally, HS 1 in 2 GI Other: Patient was examined both supine and standing with Valsalva. Bilateral groin exam negative. Patient was status post right inguinal hernia repair pair. Genitalia within normal limits. Patient was proximally 4 cm incarcerated/irreducible umbilical hernia Assessment & Plan Assessment & Plan (1) Incarcerated umbilical hernia: Code(s): K42.0 - Umbilical hernia with obstruction, without gangrene Category: Surgical Plan Risks, benefits, and alternatives of open umbilical hernia repair with mesh were reviewed with the patient and included but not limited to bleeding, infection, recurrence, numbness, pain, scarring, bowel injury and the patient wished to proceed. All questions answered. Arrangements were made for this. Coding Level of Care Code New Pt Level 5 (84971) Diagnoses Incarcerated umbilical hernia K42.0
== END 2023-09-21 13:18 | disposition home or self-care (01) ==
PROVIDERS: PCP Physician Assistant Medical; Visit Provider Surgery
DX: K42.0 Umbilical hernia with obstruction, without gangrene (principal)
CPT/HCPCS: 99204

== ENCOUNTER → 2023-09-21 12:40 | Outpatient (BNVA) | payer OTHER, SELFPAY | PROVIDERS: PCP Physician Assistant Medical; Visit Provider Surgery | DX: K42.0 Umbilical hernia with obstruction, without gangrene (principal) | CPT/HCPCS: 99202 ==

== ENCOUNTER 2023-10-01 07:29 | Day surgery (SDC) | payer OTHER, SELFPAY ==
[2023-09-29 09:41] VITALS: BMI 31.0
--- NOTE | 2023-09-29 14:56 | P.CONAN_ITS ---
Documented by User: Farrah Colvin NP 09/29/23 14:59 HPI - Anesthesia Eval Consult details Narrative: 57yo M for OPEN Large Incarcerated Hernia Umbilical with mesh PMFSH Active Problems Active Problems: All Active Problems Incarcerated umbilical hernia (Acute) Past Medical History Medical History Alcohol dependence in remission Depression Eczema Panic attacks Right groin hernia Anxiety Arthritis Surgical History Surgical History H/O hand surgery Hx of hernia repair H/O colonoscopy Hx of tonsillectomy Social History Social History Household Members: Spouse Housing: Unknown / Unable to assess Are you a primary critical care specialist to a significant other at home: No Do you presently have visiting nurse or other home services: No Alcohol intake: former Comment: Calm and cooperative Patient Tobacco Use Status: Current everyday Tobacco user Tobacco use type: Cigarette Cigarette Packs Per Day: 1 Cigarettes Per Day: 20.0 Years Smoked: 40 Second Hand Smoke Exposure: No service: Yes Sexual orientation: Straight/Heterosexual Meds Allergies Allergy/AdvReac Type Severity Reaction Status Date / Time bee pollen [BEE STINGS] Allergy Severe SWELLING Verified 10/01/23 07:59 Home Medications ?Medication ?Instructions ?Recorded ?Confirmed ?Last Taken ?Type trazodone 100 mg tablet 100 mg PO BEDTIME 09/21/23 10/01/23 Unknown History lorazepam 0.5 mg tablet 0.5 mg PO DAILY PRN Panic Attack(S) 09/29/23 10/01/23 10/01/23 History prednisone 20 mg tablet 20 mg PO DAILY eczema 09/29/23 10/01/23 Unknown History Probiotic 10/01/23 10/01/23 History multivitamin 10/01/23 10/01/23 History Exam Height,Weight and Vital Signs: Height 5 ft 9 in Weight 95.254 kg Pertinent Lab Results Pertinent Lab Results: Laboratory Tests 08/22/23 01:19 WBC 12.7 H Hgb 14.6 Hct 43.3 Plt Count 285 Sodium 141 Potassium 3.8 Chloride 106 Carbon Dioxide 25 BUN 19 H Creatinine 0.82 Narrative Narrative: EKG 08/2023 Vent. Rate : 057 BPM Atrial Rate : 057 BPM P-R Int : 154 ms QRS Dur : 108 ms QT Int : 438 ms P-R-T Axes : 039 074 074 degrees QTc Int : 426 ms Sinus bradycardia Otherwise normal ECG When compared with ECG of 01-JAN-2020 07:52, No significant change was found Assessment and Plan Assessment Anesthesia Assessment: Chart Reviewed Documented by User: Lauren Romero MD 10/01/23 09:54 PMFSH Active Problems Active Problems: All Active Problems Incarcerated umbilical hernia (Acute) H/o substance abuse and ETOH. Clean for 3 years ANISHA- Uses CPAP machine Anxiety disorder Smoker Past Medical History Medical History Alcohol dependence in remission Depression Eczema Panic attacks Right groin hernia Anxiety Arthritis Family History Family history of problems with anesthesia: No Surgical History Surgical History H/O hand surgery Hx of hernia repair H/O colonoscopy Hx of tonsillectomy History of Problems with Anesthesia: No Social History Social History Household Members: Spouse Housing: Unknown / Unable to assess Are you a primary critical care specialist to a significant other at home: No Do you presently have visiting nurse or other home services: No Alcohol intake: former Comment: Calm and cooperative Patient Tobacco Use Status: Current everyday Tobacco user Tobacco use type: Cigarette Cigarette Packs Per Day: 1 Cigarettes Per Day: 20.0 Years Smoked: 40 Second Hand Smoke Exposure: No service: Yes Sexual orientation: Straight/Heterosexual Meds Allergies Allergy/AdvReac Type Severity Reaction Status Date / Time bee pollen [BEE STINGS] Allergy Severe SWELLING Verified 10/01/23 07:59 Home Medications ?Medication ?Instructions ?Recorded ?Confirmed ?Last Taken ?Type trazodone 100 mg tablet 100 mg PO BEDTIME 09/21/23 10/01/23 Unknown History lorazepam 0.5 mg tablet 0.5 mg PO DAILY PRN Panic Attack(S) 09/29/23 10/01/23 10/01/23 History prednisone 20 mg tablet 20 mg PO DAILY eczema 09/29/23 10/01/23 Unknown History Probiotic 10/01/23 10/01/23 History multivitamin 10/01/23 10/01/23 History Exam Height,Weight and Vital Signs: Height 5 ft 9 in Weight 95.254 kg Vital Signs Temp Pulse Resp BP Pulse Ox O2 Del Method 10/01/23 08:19 70 16 10/01/23 08:08 97.9 F 68 16 132/73 99 Room Air Pertinent Lab Results Pertinent Lab Results: Laboratory Tests 08/22/23 01:19 WBC 12.7 H Hgb 14.6 Hct 43.3 Plt Count 285 Sodium 141 Potassium 3.8 Chloride 106 Carbon Dioxide 25 BUN 19 H Creatinine 0.82 Airway Mallampati Class: III TM Dist: >3cm Neck ROM: Full Loose/Missing/Broken Teeth: Yes (Some missing, ?some broken) Heart: RRR Lungs: CTAB Assessment and Plan Assessment Anesthesia Assessment: Anesthesia Plan Discussed and Chart Reviewed Final Anesthetic Review Family History of Problems with Anesthesia: No History of Problems with Anesthesia: No NPO: Yes ASA Class: III Final Preanesthetic Review: No Changes in Pt Med Stat, Meds/Allgs Chart Reviewed, Consent Obtained/Reviewed and Anes Risks/Benef Reviewed Patient Risk: Intermediate Procedure Risk: Low Assessment/Block/Sedation in SS: Assess/Block/Sedation-SS Anesthetic Plan Anesthetic Plan: GA Disposition: Standard PACU
--- NOTE | 2023-09-30 10:05 | MHC.SHP ---
Pre-Procedural Eval Section A - 24 Hr Update-Section A only Date of Service: 10/01/23 The patient is an INPATIENT: No Changes since office visit: No Cold of Flu in the past 2 weeks, No New Medical Problems, No Changes in Medication and No Patient answered all questions Section B - Complete if H&P > 30 days Chief Complaint: Umbilical hernia with obstruction, without gangren Allergies: Allergies Allergy/AdvReac Type Severity Reaction Status Date / Time bee pollen [BEE STINGS] Allergy Severe SWELLING Verified 09/21/23 13:04 Review of Systems Sugical H&P ROS: Negative: Constitution, Cardiovascular, Respiratory, Neurological, Psychiatric, Hem-Onc, Allergic/Immunologic, Gastrointestinal, Genitourinary, Musculoskeletal, Integumentary, Endocrine and Eyes/Ears/Nose/Throat Exam Surgical H&P Exam: Normal: HEENT, Normal: Heart, Normal: Lungs, Normal: Extremities, Normal: Abdomen, Normal: Skin and Normal: Neurological Plan I have reviewed the history and physical and performed a pertinent physical examination on my patient. No changes have occurred unless specified. Time Spent With Patient Time: Total time managing care of this patient today ____ minutes.
[2023-10-01] VITALS (14 sets, daily range): BP systolic 131–158; BP diastolic 73–90; PULSE 68–89; RESP 8–18; TEMP 36.3–36.8; O2SAT 95–100; BMI 30.4
[2023-10-01] MEDS: Albuterol Sulfate (0.083%) 2.5 MG/3 ML VIAL.NEB INHALE (08:18)
[2023-10-01] MEDS: Lactated Ringers 1,000 ML 100 ML IVCONT (08:19)
--- NOTE | 2023-10-01 09:52 | P.OP_ITS ---
Operative Note Operative Note Date of Service: 10/01/23 Narrative: Preoperative diagnosis: [] Incarcerated umbilical hernia Postop diagnosis: [] The same Procedure [] open umbilical herniorrhaphy with Bard mesh Surgeon: [] Jarad Director Of Optimization: [] Type of Anesthesia: [] LMA Indication for surgery: [] Rough 4 cm incarcerated umbilical hernia with omental contents Findings: [] Patient brought to the operating room, placed on operative table in supine position, after an adequate level of LMA anesthesia was induced, the patient's abdomen was prepped and draped in usual sterile fashion. Using an infraumbilical curvilinear incision, this carried down through skin, subcutaneous tissue, with the posterior aspect of the umbilicus was from the hernia sac. Sac was circumferentially dissected down the fascia and opened. Incarcerated omental contents and sac were amputated using Bovie. Fascia margins were circumferentially cleared and appropriately sized Bard mesh was placed in this defect. Superficial layer of the mesh was circumferentially sutured to the surrounding fascia using interrupted 0 Ethibond suture. At completion of the procedure, mesh was in good position with no gaps or tension. Wounds irrigated, secured hemostasis, and closed in the following manner; posterior aspect of the umbilicus was tacked to the wound floor using interrupted 3-0 Vicryl suture. Skin was closed using interrupted inverted dermal 3-0 Vicryl sutures followed by Steri-Strips and sterile dressings. Wound was infiltrated 0.5% Marcaine at completion. Sponge, needle, and instrument counts were reported correct. Patient tolerated the procedure well and emerged from anesthesia stable condition. EBL minimal
[2023-10-01] MEDS: fentaNYL citrate/PF 100 MCG/2 ML VIAL 25 MCG IVPUSH ×2 (10:13→10:18)
== END 2023-10-01 11:12 | disposition home or self-care (01) ==
PROVIDERS: PCP Physician Assistant Medical; Visit Provider Surgery
PROC: (CPT 49594; principal; 2023-10-01 09:00)
DX: K42.0 Umbilical hernia with obstruction, without gangrene (principal); F41.9 Anxiety disorder, unspecified; L30.9 Dermatitis, unspecified; F10.21 Alcohol dependence, in remission; F17.210 Nicotine dependence, cigarettes, uncomplicated; Z79.52 Long term (current) use of systemic steroids; Z79.899 Other long term (current) drug therapy
CPT/HCPCS: 49594; 88302; 94640; C1781; J0690; J1100; J1885; J2250; J2405; J2704; J2795; J3010

== ENCOUNTER → 2023-10-01 07:29 | Outpatient (BNV) | payer OTHER, SELFPAY | PROVIDERS: PCP Physician Assistant Medical; Visit Provider Surgery | DX: K42.0 Umbilical hernia with obstruction, without gangrene (principal) | CPT/HCPCS: 49594 ==

== ENCOUNTER 2023-10-11 09:05 | Outpatient (AMB) | payer OTHER, SELFPAY ==
--- NOTE | 2023-10-11 09:12 | MHC.OFFVIS ---
Intake Visit Reasons: S/P Lg. incarcerated umbilical hernia w/mesh Intake Note: Patient here s/p incarcerated umbilical hernia w/mesh. Reports incisions healing well. Patient c/o: no concerns. No longer taking rx pain meds. SX: 10-01-2023. 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 He is doing quite well status post umbilical hernia repair. He is tolerating a diet. Having regular bowel habits. He is increasing his activity level. He has minimal incisional discomfort. Patient would like to return to work soon. 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 [facility] Medical History Alcohol dependence in remission Depression Eczema Panic attacks Right groin hernia Anxiety Arthritis Surgical History (Updated 10/11/23 @ 09:39 by Llao Abraham MD) Incarcerated umbilical hernia (10/01/23) H/O hand surgery Hx of hernia repair H/O colonoscopy Hx of tonsillectomy Social History Household Members: Spouse Housing: Unknown / Unable to assess Are you a primary healthcare business analyst to a significant other at home: No Do you presently have visiting nurse or other home services: No Alcohol intake: former Comment: Calm and cooperative Patient Tobacco Use Status: Current everyday Tobacco user Tobacco use type: Cigarette Cigarette Packs Per Day: 1 Cigarettes Per Day: 20.0 Years Smoked: 40 Second Hand Smoke Exposure: No service: Yes Sexual orientation: Straight/Heterosexual Physical Exam GI Other: Abdomen is soft. Wound clean dry and intact healing well Assessment & Plan Assessment & Plan (1) Postop check: Code(s): Z09 - Encounter for follow-up examination after completed treatment for conditions other than malignant neoplasm Category: Surgical Plan I recommended the patient taken another week off. This is a conundrum because I would like for him to be all 4-6 weeks of no heavy lifting but he assures me that he will not do any when he returns to his place of employment vent. He will be given a note for 1 week off and then to return with the self-imposed restrictions as noted above. All questions answered. Patient otherwise follow-up p.r.n.. Coding Level of Care Code Global (78262) Diagnoses Postop check Z09
== END 2023-10-11 09:21 | disposition home or self-care (01) ==
PROVIDERS: PCP Physician Assistant Medical; Visit Provider Surgery
DX: Z09 Encounter for follow-up examination after completed treatment for conditions other than malignant neoplasm (principal)
CPT/HCPCS: 99212

== ENCOUNTER → 2023-10-11 09:05 | Outpatient (BNVA) | payer OTHER, SELFPAY | PROVIDERS: PCP Physician Assistant Medical; Visit Provider Surgery | DX: Z09 Encounter for follow-up examination after completed treatment for conditions other than malignant neoplasm (principal) | CPT/HCPCS: 99212 ==

== ENCOUNTER 2023-11-08 06:10 | Outpatient (REF) | payer OTHER, SELFPAY ==
[2023-11-08 10:29] LABS: MANUAL DIFF FLAG NO
[2023-11-08 10:38] LABS: Basophils Absolute Auto 0.1 X10*3/uL (0.0-0.2); Basophils Percent Auto 1.1 % (0-2); Eosinophils Absolute Auto 0.2 X10*3/uL (0.0-0.4); Eosinophils Percent Auto 2.9 % (0-4); Hematocrit 44.1 % (42.0-52.0); Hemoglobin 14.5 g/dl (14.0-18.0); Imm Gran Pct Auto 1.3 % (0.0-0.4); Lymphocytes Absolute Auto 2.6 X10*3/uL (1.2-4.9); Lymphocytes Percent Auto 34.1 % (20-40); Mean Corpuscular HGB Conc 32.9 g/dl (31.0-36.0); Mean Corpuscular Hemoglobin 29.9 pg (27.0-33.0); Mean Corpuscular Volume 90.9 fL (80.0-98.0); Mean Platelet Volume 9.5 fL (9.4-12.4); Monocytes Absolute Auto 0.5 X10*3/uL (0.1-1.2); Monocytes Percent Auto 6.3 % (2-11); Neutrophils Absolute Auto 4.1 x10*3/uL (2.0-8.3); Neutrophils Percent Auto 54.3 % (45-73); Platelet Count 335 X10*3/uL (160-400); Red Blood Count 4.85 X10*6/uL (4.60-5.80); Red Cell Distribution Width 13.3 % (11.0-16.0); White Blood Count 7.6 X10*3/uL (4.8-10.8)
[2023-11-08 11:00] LABS: Alanine Aminotransferase 21 U/L (0-40); Albumin Level 4.4 g/dL (3.5-5.0); Alkaline Phosphatase 67 U/L (39-117); Anion Gap 13 (12-20); Aspartate Amino Transferase 17 U/L (5-37); Bilirubin Direct 0.1 mg/dL (0.0-0.5); Bilirubin Total 0.3 mg/dL (0.0-1.0); Blood Urea Nitrogen 13 mg/dL (9-16); Calcium 9.7 mg/dL (8.4-10.2); Carbon Dioxide 28 mmol/L (22-29); Chloride 105 mmol/L (96-108); Cholesterol 191 mg/dL (<200); Estimated Glomerular Filt Rate > 60; Glucose Random 101 mg/dL (60-115); HDL Cholesterol 53 mg/dL (>40); LDL Cholesterol Calculated 104 mg/dL (<100); Potassium 4.6 mmol/L (3.3-5.1); Sodium 141 mmol/L (135-145); Total Protein 7.6 g/dL (6.5-8.0); Triglycerides 171 mg/dL (<150)
[2023-11-08 11:29] LABS: HBS Num1 2.29 mIU/mL (0-7.99); HBsAGNum1 0.36 S/CO (0.00-0.99); Hepatitis B Core Antibody Nonreactive (Nonreactive); Hepatitis B Surface Antigen Negative (Negative); ~HepC Num1 0.12 S/CO (0.00-0.79); ~Hepatitis B Surface Antibody NONREACTIVE (Nonreactive); ~Hepatitis C Antibody Nonreactive (Nonreactive)
[2023-11-11 06:33] LABS: TS Negative Control Passed; TS Panel A 0; TS Panel B 0; TS Positive Control Passed; TSpotTB Negative (Negative)
== END 2023-11-08 06:11 | disposition home or self-care (01) ==
LOC: HO.HMGCLDS 06:10
PROVIDERS: PCP Physician Assistant Medical; Visit Provider Physician Assistant
DX: L20.9 Atopic dermatitis, unspecified (principal); Z79.899 Other long term (current) drug therapy
CPT/HCPCS: 36415; 80048; 80061; 80076; 85025; 86481; 86704; 86706; 86803; 87340

== ENCOUNTER 2024-03-11 15:37 | Emergency (ER) | payer OTHER, SELFPAY ==
[2024-03-11 15:49] VITALS: BP 135/93; PULSE 99; RESP 22; TEMP 36.8; O2SAT 98; BMI 30.3
--- NOTE | 2024-03-11 15:49 | ED_ITS ---
HPI - General Adult General Chief complaint: Upper Respiratory Symptoms Stated complaint: flu like symptoms Time Seen by Provider: 03/11/24 17:49 Source: patient Mode of arrival: ambulatory Limitations: no limitations History of Present Illness ED Provider: SCOTT FLOWERS PA-C HPI narrative: 58 year old male presents to the ED today for evaluation of cough, chills and myalgias x3 days. No known sick contacts. Denies documented fever, sore throat, sputum production, chest pain, palpitations, sob, N/V/D, abd pain. Related Data Home Medications ?Medication ?Instructions ?Recorded ?Confirmed trazodone 100 mg tablet 100 mg PO BEDTIME 09/21/23 10/01/23 lorazepam 0.5 mg tablet 0.5 mg PO DAILY PRN Panic Attack(S) 09/29/23 10/01/23 prednisone 20 mg tablet 20 mg PO DAILY eczema 09/29/23 10/01/23 Probiotic 10/01/23 multivitamin 10/01/23 Previous Rx's ?Medication ?Instructions ?Recorded clonazepam 0.5 mg tablet (Klonopin) 0.5 mg PO BID PRN Anxiety 30 days 01/04/20 #15 tabs duloxetine 20 mg capsule,delayed 20 mg PO DAILY 30 days #30 caps 01/04/20 release escitalopram oxalate 10 mg tablet 10 mg PO DAILY@0730 5 days #5 tabs 01/04/20 hydrocortisone 1 % topical ointment 1 appl topical TID PRN rash #453.6 09/19/23 grams benzonatate 100 mg capsule 100 mg PO BID PRN cough #20 caps 03/11/24 oseltamivir 75 mg capsule (Tamiflu) 75 mg PO BID 5 days #10 caps 03/11/24 Allergies Allergy/AdvReac Type Severity Reaction Status Date / Time bee pollen [BEE STINGS] Allergy Severe SWELLING Verified 03/11/24 15:52 Review of Systems Review of Systems: Constitutional: No fever, chills, fatigue, night sweats, weight changes ENT/Mouth: No ear pain, hearing loss, nasal congestion, sinus pain, rhinorrhea, sore throat Eyes: No eye pain, swelling, redness, vision changes, discharge Cardio: No chest pain, palpitations, PEDRAZA, orthopnea, peripheral edema Pulm: No SOB, sputum, wheezing, dyspnea, hemoptysis, +cough GI: No nausea, vomiting, hematemesis, abdominal pain, diarrhea, constipation, hematochezia, melena : No irregular bleeding, dysuria, frequency, urgency, hesitancy, hematuria, flank pain, urinary flow changes, urinary incontinence or retention MSK: No back pain, neck pain, joint pain, +myalgias Skin: No lesions, rashes Neuro: No weakness, numbness, paresthesias, LOC, dizziness, headache Psych: No anxiety/panic, depression, SI/HI, AH/VH All other systems reviewed and are negative. [facility] Past Medical History Attestation statement: The following information was validated with the patient. Source: old records reviewed and nursing notes reviewed Medical History Alcohol dependence in remission Depression Eczema Panic attacks Right groin hernia Anxiety Arthritis Surgical History Incarcerated umbilical hernia (10/01/23) H/O hand surgery Hx of hernia repair H/O colonoscopy Hx of tonsillectomy Social History Social History Household Members: Spouse Housing: Unknown / Unable to assess Are you a primary career services coordinator to a significant other at home: No Do you presently have visiting nurse or other home services: No Alcohol intake: former Comment: Calm and cooperative Patient Tobacco Use Status: Current everyday Tobacco user Tobacco use type: Cigarette Cigarette Packs Per Day: 1 Cigarettes Per Day: 20.0 Years Smoked: 40 Second Hand Smoke Exposure: No Advance Directives: No Advance Directives Information Provided: No Do you have a plan to hurt others: No Plan service: Yes Sexual orientation: Straight/Heterosexual Physical Exam ED Vital Signs: Vital Signs - 24 hr 03/11/24 15:49 03/11/24 18:11 Temperature 98.2 F 98.2 F Pulse Rate 99 99 Respiratory Rate 22 H 22 H Blood Pressure 135/93 H 135/93 H Pulse Oximetry 98 98 Oxygen Delivery Method Room Air Room Air BMI result Body Mass Index 30.3 hypertensive, tachypneic General: Well appearing, in no acute distress. Skin: Warm, dry, intact. No rashes or lesions. Head: Normocephalic, atraumatic. EENT: Hearing is intact b/l. Conjunctiva clear. Sclera is anicteric. PERRLA. EOM intact. Moist mucous membranes.? Neck: Supple without LAD. FROM. Trachea midline.? Cardiac: Chest wall symmetric. RRR. Lungs: Normal respiratory effort without accessory muscle use. bronchospastic cough. mCTA bilaterally. No rales, rhonchi, or wheezes.? Ext: Upper and lower extremities atraumatic, without tenderness, deformity, swelling or erythema. Full ROM throughout Neuro: AOx3. Normal speech. Ambulating with steady gait. Psych: Appropriate mood and affect. Responds appropriately to questions. Course Course Course Narrative: Patient has tested positive for influenza A. After discussion, Tamiflu sent to pharmacy. Will also send Tesopalsushila Jermaine for cough. Patient has remained stable throughout ED visit today. Discussed worrisome signs and symptoms and when to return to the ED. All questions answered at this time. Patient is agreeable with disposition and stable for discharge. Medical Decision Making Medical Decision Making MDM Narrative: 58 year old male presents to the ED today for evaluation of cough, chills and myalgias x3 days. Hypertensive, tachypneic. Afebrile. Not hypoxic. He is nontoxic appearing and in NAD. On exam, bronchospastic cough noted. no increased effort of breathing. his lungs are cta b/l, no wheezes of rhonchi. exam otherwise normal. Differential diagnosis includes viral syndrome, bronchitis, pneumonia Plan for viral swabs. Differential Diagnosis Differential Diagnoses: The differential diagnosis associated with the presentation includes as above. Admission/Observation not indicated. Lab Data [facility] Lab Attestation statement: I reviewed the patient's lab results. as above. Labs: Lab Results 03/11/24 Range/Units 16:48 Influenza Type A (PCR) POSITIVE A (Negative) Influenza Type B (PCR) NEGATIVE (Negative) RSV RNA Qual (PCR) NEGATIVE (Negative) SARS-CoV-2 RNA (RT-PCR) NEGATIVE (Negative) External Record Review External record reviewed: Inpatient record Prescription Management I considered prescription management with: Antiviral (tamiflu) Social Determinants Patient?s care significantly limited by Social Determinants of Health including: Other Social Determinant of Health Critical Care Time Critical Care Time Critical Care Time: No Discharge Plan Discharge Clinical Impression: Influenza A Patient Disposition: Home, Self-Care Instructions: Influenza (ED) Additional Instructions: Today you tested positive for Influenza A. After discussion, Tamiflu has been sent to your pharmacy. Take this twice daily for the next 5 days. Take Ibuprofen or Tylenol as needed for fevers or body aches.? Practice social distancing and good hand hygiene. Drink plenty of fluids. Follow-up with your primary care provider this week. Return to the emergency department with new or worsening symptoms. In case of emergency call 911 You can purchase a pulse oximeter from your local pharmacy or grocery store, and monitor your oxygen saturation if it goes below 94% you should return to the emergency department for further evaluation. Prescriptions: New oseltamivir [Tamiflu] 75 mg capsule 75 mg PO BID 5 Days Qty: 10 0RF benzonatate 100 mg capsule 100 mg PO BID PRN (Reason: cough) Qty: 20 0RF No Action duloxetine 20 mg Capsule,Delayed Release(Dr/Ec) 20 mg PO DAILY 30 Days Qty: 30 0RF clonazepam [Klonopin] 0.5 mg Tablet 0.5 mg PO BID PRN (Reason: Anxiety) 30 Days Qty: 15 0RF Rx Instructions: Use sparingly and responsibly. will monitor and dispense escitalopram oxalate 10 mg Tablet 10 mg PO DAILY@0730 5 Days Qty: 5 0RF Rx Instructions: DC after 5 days hydrocortisone 1 % ointment 1 appl topical TID PRN (Reason: rash) Qty: 453.6 0RF lorazepam 0.5 mg Tablet 0.5 mg PO DAILY PRN (Reason: Panic Attack(S)) prednisone 20 mg Tablet 20 mg PO DAILY Probiotic multivitamin trazodone 100 mg tablet 100 mg PO BEDTIME Stand Alone Forms: Work/School Release Interventions: ED Discharge Assessment Last Done: 03/11/24 18:11 Discharge Date/Time: 03/11/24 18:12 Print Language: Danish
[2024-03-11 17:32] LABS: Influenza A PCR POSITIVE (Negative); Influenza B PCR NEGATIVE (Negative); Resp Syncy Virus RNA Qual PCR NEGATIVE (Negative); SARS COV2 PCR INHOUSE NEGATIVE (Negative)
[2024-03-11 18:11] VITALS: BP 135/93; PULSE 99; RESP 22; TEMP 36.8; O2SAT 98
== END 2024-03-11 18:12 | disposition home or self-care (01) ==
PROVIDERS: Physician Assistant Medical; Emergency Provider Emergency Medicine Emergency Medical Services; PCP Physician Assistant Medical
DX: J10.1 Influenza due to other identified influenza virus with other respiratory manifestations (principal); R05.9 Cough, unspecified; Z03.818 Encounter for observation for suspected exposure to other biological agents ruled out
CPT/HCPCS: 0241U; 99282; 99283

== ENCOUNTER → 2024-10-06 07:13 | Outpatient (BNV) | payer OTHER, SELFPAY | PROVIDERS: Visit Provider Radiology Body Imaging | DX: K59.00 Constipation, unspecified (principal) | CPT/HCPCS: 74018 ==

== ENCOUNTER 2024-10-06 07:38 | Emergency (ER) | payer OTHER, SELFPAY ==
--- OUTSIDE RECORDS SUMMARY | 2024-04-04 11:30 | XMS_ITS | Encounter Summary ---
Author Name [facility] [facility] [place] Address [address] [place] [address] Care Team Providers Care Internal Combustion Engineer Name Role Phone SHAWNEE NOEL Primary Care Provider Unavailabl e Insurance Providers: All historical and current Section Date Range: From patient's date of to the date document was created. This section includes the names of all active insurance providers for the patient. Insurance Provider Type of Coverage Plan Name Start of Policy Coverage End of Policy Coverage Group Number Member ID Insurance Provider's Telephone Number Policy Wright's Name Patient's Relationship to Policy Wright [employer] Feb 15, 2019 [id number] [phone] VINCENZOTIERA NEVES PATIENT [employer] PREFERRED PROVIDER [employer]GAN[employer]AT I[employer]PPO) [employer] Feb 15, 2019 [id number] DAISYTIERA CHAYOLANDA PATIENT [employer] PREFERRED PROVIDER [employer]PP[employer] Feb 15, 2019 [id number] VINCENZOTIERA NEVES CHAYOLANDA PATIENT Selected Encounter This section includes the information on record at [place] for the Encounter. Date/Time Encounter Type Encounter Description Reason Provider Source Apr 04, 2024 03:30 PM OFFICE O/P EST LOW 20 MIN [facility] - IND ICD-10-CM F33.2 Major depressv disorder, recurrent severe w/o psych features SIMON ABDULLAHI E Encounter Template Text not used by CT Assessments - Encounter Diagnoses This section includes the primary and secondary diagnoses documented for the Encounter. Date/Time Primary/Secondary Diagnosis Diagnosis Name Provider Source Apr 04, 2024 03:52 PM PRIMARY Major depressv disorder, recurrent severe w/o psych features SIMON ABDULLAHI [facility] Plan of Treatment: Future Appointments (+ 6 months) and Future Tests (+/- 45 days) The Plan of Treatment section includes future care activities for the patient from all [place] treatmentfacilities. This section includes future appointments and future orders which are active, pending or scheduled. Future Appointments This section includes appointments that were scheduled to occur 6 months from the date of the Encounter, up to a maximum of 20 appointments. The data comes from all [place] treatment facilities. Appointment Date/Time Appointment Type Appointme nt Facility Name June 27, 2024 03:30 PM AMBULATORY - PSYCHIATRY [facility] Social History: Smoking Status (Most current) and Tobacco Use (All prior to encounter date) This section includes the most current, and the historical, smoking and tobacco- related health factors from the [place] facility where the Encounter took place. Current Smoking Status This section includes the most current smoking, or tobacco-related health factor, from the [place] facility where the Encounter took place. Date/Time Current Smoking Status Comment Facil demi May 27, 2023 03:30 PM VA-TOBACCO USER EVERY DAY [facility] Tobacco Use History This section includes a history of the smoking, or tobacco-related health factors, that were collected on or before the date of the Encounter. The data comes from the [place] facility where the Encounter took place. 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 [facility] May 27, 2023 03:30 PM VA-TOBACCO USE MED NO [facility] May 27, 2023 03:30 PM VA-TOBACCO USE WI 30 MIN OF WAKEUP [facility] May 27, 2023 03:30 PM VA-TOBACCO USER EVERY DAY [facility] Nov 10, 2022 03:00 PM VA-TOBACCO USE DEC LINED TO ANSWER [facility] Oct 01, 2021 03:30 PM VA-TOBACCO USE DEC LINED TO ANSWER [facility] Feb 21, 2020 10:00 AM VA-TOBACCO USE DEC LINED TO ANSWER [facility] Jan 16, 2020 01:19 PM VA-TOBACCO USE DEC LINED TO ANSWER [facility] Nov 28, 2019 03:30 PM VA-TOBACCO USE DEC LINED TO ANSWER [facility] Aug 02, 2019 11:34 AM VA-TOBACCO USE DEC LINED TO ANSWER [facility] Jun 09, 2019 04:15 PM VA-TOBACCO USE DEC LINED TO ANSWER [facility] Jan 25, 2017 10:49 AM CURRENT SMOKER smokes cigarellos 1 pack daily. started smoking at 16 years old [facility] Jan 25, 2017 10:49 AM V1-PT NOT INTEREST ED IN QUIT TOBACCO USE [facility] Encounter Notes: All associated encounter notes This section contains the clinical notes associated to the Encounter. Date/Time Encounter Note(s) Provider Source Apr 04, 2024 03:39 PM CLINICAL NURSE SPE CIALIST NOTE: LOCAL TITLE: CLINICAL NURSE SPECIALIST/MENTAL HEALTH STANDARD TITLE: CLINICAL NURSE SPECIALIST NOTE DATE OF NOTE: APR 04, 2024@15:39 ENTRY DATE: APR 04, 2024@15:39:58 AUTHOR: SIMON ABDULLAHI EXP COSIGNER: URGENCY: STATUS: COMPLETED Problem List is the source for the followin. Vitamin D deficiency 2. Alcohol dependence 3. Sleep apnea 4. Panic disorder 5. Low back pain 6. Colonoscopy Screening 7. Primary Care Physician 8. Tobacco dependence, continuous 9. Generalized anxiety disorder Patient was seen today for treatment of the following diagnosis/diagnoses: Pertinent symptoms: Panic disorder- Depression medication management- 30m started Vortioxetine on 10/28/21 for depression. He reports that med has made a significant difference in improving mood in combination with Duloxetine. Today he reports that he has had some breakthrough panic attacks - not too frequent however needs to take Lorazepam 1 mg prn to help him Followed by [facility] Generally feeling good mentally, no depression and minimal anxiety levels since starting Vortioxetine 20mg daily. Taking Trazodone- sleeping well along with Bob- Stim prn. Renew Lorazepam 1 mg prn # 20 . He has taken med in the past . 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 Mood:- generally euthymic has anxiety spikes. No S/I-H/I Cognition: intact Memory grossly intact Abnormal perceptions: no auditory or visual hallucinations. Thought process: linear Thought content: no delusions Insight/Judgment: good in relation to mood changes Denies any thoughts of self-harm Assessment: Remains improved in mood, friendly. No panic attacks He is requesting to return to therapist and is now seen by telehealth therapist privately The following VA and Non-VA medications were reconciled with the patient: Active Outpatient Medications (including Supplies): BISACODYL 5MG EC TAB TAKE TWO TABLETS BY MOUTH ONCE DAILY ACTIVE FOR BOWELS - LAXATIVE CETIRIZINE HCL 5MG TAB TAKE ONE TABLET BY MOUTH ONCE DAILY HOLD FOR ALLERGIES CLOBETASOL PROPIONATE 0.05% CREAM APPLY A THIN LAYER ACTIVE TOPICALLY TWICE DAILY NEEDED FOR ITCHING/RASH DICYCLOMINE HCL 20MG TAB TAKE ONE TABLET BY MOUTH FOUR ACTIVE TIMES A DAY (FOR IRRITABLE BOWEL SYNDROME) DULOXETINE HCL 20MG EC CAP TAKE THREE CAPSULES BY MOUTH ACTIVE EVERY MORNING FOR 60 DAYS, AND TAKE TWO CAPSULES EVERY EVENING FOR 60 DAYS FOR MAJOR DEPRESSIVE DISORDER LORAZEPAM 1MG TAB TAKE ONE TABLET BY MOUTH ONCE DAILY PENDING NEEDED PREDNISONE 10MG TAB TAKE ONE TABLET BY MOUTH ONCE DAILY ACTIVE FOR ATOPIC DERMATITIS TERBINAFINE HCL 1% CREAM APPLY A THIN LAYER TOPICALLY ACTIVE TWICE DAILY FOR ATHLETE'S FOOT TRAZODONE HCL 100MG TAB TAKE ONE TABLET BY MOUTH AT ACTIVE BEDTIME NEEDED INSOMNIA TRAZODONE HCL 100MG TAB TAKE ONE TABLET BY MOUTH AT PENDING BEDTIME NEEDED TRIAMCINOLONE ACETONIDE 0.5% CREAM APPLY A THIN FILM ACTIVE TOPICALLY TWICE DAILY FOR 14 DAYS VORTIOXETINE 20MG TAB TAKE ONE TABLET BY MOUTH ONCE DAILY ACTIVE FOR MAJOR DEPRESSIVE DISORDER VORTIOXETINE 20MG TAB TAKE ONE TABLET BY MOUTH ONCE DAILY PENDING Duloxetine 80mg mg in 40mg at his Overall has been improving with the counseling he has been receiving over the past year Positive changes - remains abstinent from etc. Plan Renew Vortioxetine 20 mg daily - continue Duloxetine 60mg in am and 40 mg at hs . Alpha Stim use prn -Trazodone 100 mg at hs for sleep -good response. Add Buspar 10 mg bid for anxiety x 60 days .Presently Ehrenberg has been residing with his who is his primary support. 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 Labs/Radiology/Tests/Consultation _x_ none ordered __ obtained: labs reviewed I educated the patient about the side effect profile of the benzodiazepine, including potential for sedation, for impaired coordination, for falling, and for impaired cognition. The patient was advised not to drive after taking the benzodiazepine -- The patient was advised about the potential for excessive sedation when the benzodiazepine is taken with other medications. The patient was advised not to take the benzodiazepine with alcohol. The patient was advised about the potential for addiction to the benzodiazepine. The concepts in the benzodiazepine treatment contract were reviewed with the patient and the patient agreed. The patient demonstrated good understanding of the benzodiazepine side effect profile. The benefits of benzodiazepine treatment outweigh risks for this patient. Rt video in 2 months/prn The rationale for the psychiatric medications and the alternatives to treatment were discussed with the patient. The side effect profile of the psychiatric medications was reviewed with the patient. Patient demonstrated reasonable understanding of the medication side effects and the above issues. The benefits of psychiatric medications outweigh risks for this patient. Medication Reconciliation: Medication Reconciliation: Outpatient: Has the patient been taking medications as documented in the EMLR? YES: The patient has been taking medications as documented in the EMLR. Essential Medication List for Review used to complete this medication reconciliation. INCLUDED IN THIS LIST: Alphabetical list of active outpatient prescriptions dispensed from this [facility] (local) and dispensed from another [place] or [facility] facility (remote) as well as inpatient orders (local, pending and active), local clinic medications, locally documented non-VA medications, and local prescriptions that have or been discontinued in the past 90 days. - All changes in medications, including all non-VA/Herbal/OTC medications were entered into CPRS. - If there were any medications the patient should no longer take, they were discontinued. - The patient/caregiver was instructed to update this list, discard old lists, and take this list to the next appointment, whether with a VA or non-VA provider. Suicide Screen: C-SSRS Screening [place] Suicide Severity Rating Scale (C-SSRS) screener 1. Over the past month, have you wished you were or wished you could go to sleep and not wake up? No 2. Over the past month, have you had any actual thoughts of killing yourself? No 3. Over the past month, have you been thinking about how you might do this? Response not required due to responses to other questions. 4. Over the past month, have you had these thoughts and had some intention of acting on them? Response not required due to responses to other questions. 5. Over the past month, have you started to work out or worked out the details of how to kill yourself? Response not required due to responses to other questions. 6. If yes, at any time in the past month did you intend to carry out this plan? Response not required due to responses to other questions. 7. In your lifetime, have you ever done anything, started to do anything, or prepared to do anything to end your life (for example, collected pills, obtained a gun, gave away valuables, went to the roof but didn't jump)? No 8. If YES, was this within the past 3 months? Response not required due to responses to other questions. /otilia/ Simon Abdullahi APRN, STAFF CLINICAL NURSE SPECIALIST Signed: 04/04/2024 15:51 SIMON ABDULLAHI
--- NOTE | ~2024-10-06 | XR_ITS ---
EXAMINATION: XR ABDOMEN KUB CLINICAL INDICATION: ?constipation COMPARISON: Abdomen/pelvis CT on August 22, 2023 TECHNIQUE: AP view of the abdomen. FINDINGS: Note that the entire abdomen is not included in the obtained images. The bowel gas pattern is normal with no evidence of ileus or obstruction. Mild stool load within descending and sigmoid colon and rectum. No unusual soft tissue calcifications are noted. The bones are unremarkable. XR/XR KUB IMPRESSION: Mild stool load within the distal colon and rectum. Electronically signed by: Gemma Pandey MD 10/06/2024 08:35 AM EDT
[2024-10-06 07:45] VITALS: BP 146/86; PULSE 82; RESP 16; TEMP 36.1; O2SAT 99; BMI 30.7
--- OUTSIDE RECORDS SUMMARY | 2024-10-06 08:00 | XMS_ITS | Clinical Summary ---
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 Name Role Phone Avery Layton MD Primary Care Provider [phone] Allergies Active Allergy Reactions Criticality Noted Date Comments Other Swelling 04/06/2007 Bee stings Medications predniSONE (DELTASONE) 20 mg tablet 3 tabs daily X 5 days; 2 tabs daily X 5 days, 1 tab daily x 5 days 07/06/2016 Active Active Problems Problem Noted Date Diagnosed Date Major depressive disorder, r ecurrent severe without psychotic features (CMS/HCC V24, CMS/HCC V28) 06/18/2014 Depression, major, in partial remission (CMS/HCC V24) 01/31/2013 Panic disorder without agoraphobia 01/31/2013 DDD (degenerative disc disease), lumbar 07/15/19 13 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 Negative colonoscopy 05/05/2010, no colon cancer screening needed for 10 years. IMO update Sleep apnea 09/17/2009 Snoring 07/22/2007 Allergic rhinitis 05/24/2006 Tobacco use disorder 05/24/2006 Immunizations Name Administration Dates Next Due H1N1 Inj Preservative Free 01/23/2009 Influenza trivalent, with pr eservative (Fluzone; Afluria) 6mo and older 11/07/2010,01/23/2009,01/23/2008 Tdap Tetanus diptheria acell ular pertussis (Boostrix; Adacel) 7yo and older 01/23/2008 Surgical History Surgery Date Site/Laterality Comments HERNIA REPAIR PROCEDURE: HISTORICAL HERNIA REPAIR/ING COLONOSCOPY 05/05/2010 PROCEDURE: RI COLONOSCOPY FLX DX W/COLLJ SPEC WHEN PFRMD; COMMENT: Normal Medical History Medical History Date Comments Hemorrhage of gastrointestin al tract, unspecified 05/05/2010 DX:Hemorrhage of gastrointes tinal tract, unspecified 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:Brown's palsy Family History Medical History Relation Name Comments Diabetes Father Heart attack Father silent MIs , C ABG 2006 Diabetes Maternal Grandmother Diabetes Mother boarderline DM Relation Name Status Comments Father Alive cabg age 69 Maternal Grandmother Mother Alive Mother's side many uncles wi th cad age 50 Social History Tobacco Use Types Packs/Day Years Used Date Smoking Tobacco: Every Day Cigarettes Smokeless Tobacco: Never Alcohol Use Standard Drinks/Week Comments Yes 0 (1 standard drink = 0.6 oz pur e alcohol) Sex and Gender Information Value Date Recorded Sex Assigned at Not on file Legal Sex Male 6:46 AM EST Gender Identity Not on file Sexual Orientation Not on file Obstetrics History Plan of Treatment Health Maintenance Due Date Last Done Comments Hepatitis B Vaccines (1 of 3 - 19+ 3-dose series) 1984 Pneumococcal Vaccine: 50+ Years (1 of 2 - PCV) 1984 Zoster Vaccines (1 of 2) 10/29/2015 DTaP,Tdap,and Td Vaccines (2 - Td or Tdap) 01/22/2018 01/23/2008 Cholesterol Screening (Lipid Panel) 01/28/2022 11/08/2010 Colorectal Cancer Screening: Colonoscopy 01/28/2022 HIV Screening 01/28/2022 Hepatitis C Screening 01/28/2022 Social Influencers of Health Screening 01/28/2022 COVID-19 Vaccine ( season) 2023 Depression Screening 02/16/2024 Influenza Vaccine (#1) 2024 1, 01/23/2009, 01/23/2009, Additional history exists HIB Vaccines Aged Out No longer eligi ble based on patient's age to complete this topic HPV Vaccines Aged Out No longer eligi ble based on patient's age to complete this topic Hepatitis A Vaccines Aged Out No long er eligible based on patient's age to complete this topic IPV Vaccines Aged Out No longer eligi ble based on patient's age to complete this topic MMR Vaccines Aged Out No longer eligi ble based on patient's age to complete this topic Meningococcal ACWY Vaccine Aged Out N o longer eligible based on patient's age to complete this topic Meningococcal B Vaccine Aged Out No l onger eligible based on patient's age to complete this topic RSV Immunization Patients Under 20 months Aged Out No longer eligible based on patient's age to complete this topic Varicella Vaccines Aged Out No longer eligible based on patient's age to complete this topic Procedures Procedure Name Priority Date/Time Associated Diagnosis Comments LIPID PANEL Routine 11/08/2010 from Last 3 Months or Most Recently Relevant to Health Maintenance Results * (ABNORMAL) Lipid panel (11/08/2010) LDL/HDL Ratio 3 0 - 4 Triglycerides 72 0 - 150 mg/dL Cholesterol 188 0 - 200 mg/dL HDL 71 >=40 mg/dL LDL Cholesterol 103(A) 0 - 100 mg/dL Blood Venous blood specimen / Unknown Historical Provider LAB BLOOD ORDERABLES Haydee l Result from Last 3 Months or Most Recently Relevant to Health Maintenance Care Teams 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
--- NOTE | 2024-10-06 08:17 | ED_ITS ---
HPI - Abdominal Pain General Chief Complaint: Abdominal Pain Stated Complaint: Bowel Blockage Time Seen by Provider: 10/06/24 08:09 Source: patient, RN notes reviewed and old records reviewed Mode of arrival: ambulatory Limitations: no limitations History of Present Illness ED Provider: Elsy Marc PA-C HPI narrative: 58-year-old male presenting to the emergency department today for evaluation of constipation x6 days. Past medical history significant for umbilical hernia repair 1 year ago. Patient states that he has had constipation before in the past only lasting for about 3-4 days and typically akiz-lyp-jwymmwo measures works for him. His last BMs he describes as being ?a lot?. He has tried 3 nizy-jri-qkkeiuq laxatives including both liquid Dulcolax, enema as well as laxative pill. None of these have worked. He just feels like there is a lot of gurgling in his stomach as well as distention. He does not have any nausea and has not vomited. He denies any changes to his diet typically only has 1 full meal a day at dinnertime and drinks throughout the day. He denies any fevers or chills or respiratory symptoms. He does have rectal pressure and history of internal hemorrhoids but no bleeding recently. He denies having any urinary symptoms voiding regularly. No recent travel anywhere. No associated back pain with this or flank pain. MD elicited complaint: abdominal pain Related Data Home Medications ?Medication ?Instructions ?Recorded ?Confirmed trazodone 100 mg tablet 100 mg PO BEDTIME 09/21/23 0 10/01/23 lorazepam 0.5 mg tablet 0.5 mg PO DAILY PRN Panic At tack(S) 09/29/23 10/01/23 prednisone 20 mg tablet 20 mg PO DAILY eczema 10/01/23 Probiotic 10/01/23 multivitamin 10/01/23 Previous Rx's ?Medication ?Instructions ?Recorded clonazepam 0.5 mg tablet (Klonopin) 0.5 mg PO BID PRN Anxiety 30 days 01/04/20 #15 tabs duloxetine 20 mg capsule,delayed 20 mg PO DAILY 30 day s #30 caps 01/04/20 release escitalopram oxalate 10 mg tablet 10 mg PO DAILY@0730 5 days #5 tabs 01/04/20 hydrocortisone 1 % topical ointment 1 appl topical TID PRN rash #453.6 09/19/23 grams benzonatate 100 mg capsule 100 mg PO BID PRN cough #20 caps 03/11/24 oseltamivir 75 mg capsule (Tamiflu) 75 mg PO BID 5 day s #10 caps 03/11/24 Allergies Allergy/AdvReac Type Severity Reaction Status Date / Time bee pollen (BEE STINGS) Allergy Severe SWELLING Verified 10/06/24 07:45 Review of Systems Review of Systems Yes all other systems are reviewed and are negative PMFSH Past Medical History Attestation statement: The following information was validated with the patient. Source: old records reviewed and nursing notes reviewed Medical History Alcohol dependence in remission Depression Eczema Panic attacks Right groin hernia Anxiety Arthritis Surgical History Incarcerated umbilical hernia (10/01/23) H/O hand surgery Hx of hernia repair H/O colonoscopy Hx of tonsillectomy Social History Social History Household Members: Spouse Housing: Unknown / Unable to assess Are you a primary health care facility administrator to a significant other at home: No Do you presently have visiting nurse or other home services: No Alcohol intake: former Comment: Calm and cooperative Patient Tobacco Use Status: Current everyday Tobacco user Tobacco use type: Cigarette Cigarette Packs Per Day: 1 Cigarettes Per Day: 20.0 Years Smoked: 40 Smoked in Last 30 Days: No Second Hand Smoke Exposure: No Use of substances other than those prescribed or required for medical reasons: No Advance Directives: Yes Advance Directives Information Provided: Yes Advance Directives on File: No service: Yes Sexual orientation: Straight/Heterosexual Physical Exam ED Exam Exam: General: Appears in no acute distress, appears well nourished body habitus is obese, appears stated age. No septic or ill-appearing. Vitals reviewed normal, PMH/Social and Surgical hx reviewed including allergies and current medications. - reviewed for prior visits here and red as it pertains to similar pain back on 08/22/2023 when he was seen for his umbilical hernia. Head: Normocephalic, no obvious trauma or skin lesions noted. Eyes: EOMI ENMT: moist oral mucosa Neck: trachea midline Cardiovascular: peripheral perfusion normal, Regular heart rate regular rhythm Respiratory: no respiratory distress lungs clear Abdomen: Obese abdomen nontender no rigidity noted hyperactive bowel sounds Extremities: warm and moving without difficulty unless otherwise detailed in physical exam if applicable. Psych: Cooperative Neuro: Alert and oriented. Vital Signs: Vital Signs - 24 hr 10/06/24 07:45 10/06/24 10:59 Temperature 96.9 F 96.9 F Pulse Rate 82 82 Respiratory Rate 16 16 Blood Pressure 146/86 H 146/86 H Pulse Oximetry 99 99 Oxygen Delivery Method Room Air Room Air BMI result Body Mass Index 30.7 Medical Decision Making Medical Decision Making MDM Narrative: Well-appearing 58-year-old male with history of umbilical hernia repair 1 year ago presenting to the ED today for constipation. Upon arrival to ED he is afebrile with normal stable vital signs. He has a nonacute nontender abdomen. Based on his last BM being 6 days ago can not rule out SBO especially in the setting of prior abdominal surgery. We will obtain abdominal labs and imaging. Other potential etiology includes constipation, gastroenteritis, colitis, intussusception and less likely SBP he does not appear septic or ill at this time sepsis workup deferred no UA symptoms were given lower abdominal pressure will obtain UA. Patient's labs show microcytic anemia but does not meet transfusion criteria nor is he admitting to any weakness or shortness of breath therefore we will defer to outpatient management for iron studies. KUB shows no evidence of a small-bowel obstruction and as his abdomen remains nontender we will defer CT imaging. There is a moderate amount of stool noted. No leukocytosis or electrolyte imbalance or kidney dysfunction. Lactulose enema was ordered and effective patient is reporting significant improvement is in no pain and would like to go home. I do believe he is stable for discharge discussed constipation and further reasons to return to the emergency department. Patient demonstrated verbal understanding of the plan and was in agreement he was discharged home stable Differential Diagnosis Differential Diagnoses: The differential diagnosis associated with the presentation includes See [facility] Admission/Observation Consideration of admission/observation: Escalation of care including admission/observation considered Patient would have been admitted to the hospital had his work up had any findings where hospital admission was appropriate and his clinical presentation warranted hospital admission. Lab Data [facility] Lab Attestation statement: I reviewed the patient's lab results. 10/06/24 08:47 10/06/24 08:47 Labs: Lab Results 10/06/24 10/06/24 Range/Units 08:47 10:49 WBC 7.0 (4.8-10.8) X10*3/uL RBC 4.37 L (4.60-5.80) X10*6/uL Hgb 13.7 L (14.0-18.0) g/dl Hct 38.5 L (42.0-52.0) % MCV 88.1 (80.0-98.0) fL MCH 31.4 (27.0-33.0) pg MCHC 35.6 (31.0-36.0) g/dl RDW 13.4 (11.0-16.0) % Plt Count 327 (160-400) X10*3/uL MPV 9.2 L (9.4-12.4) fL Immature Gran % (Auto) 0.6 H (0.0-0.4) % Neut % (Auto) 66.1 (45-73) % Lymph % (Auto) 25.1 (20-40) % Rice % (Auto) 7.2 (2-11) % Eos % (Auto) 0.6 (0-4) % Baso % (Auto) 0.4 (0-2) % Lymph # (Auto) 1.8 (1.2-4.9) X10*3/uL Rice # (Auto) 0.5 (0.1-1.2) X10*3/uL Eos # (Auto) 0.0 (0.0-0.4) X10*3/uL Baso # (Auto) 0.0 (0.0-0.2) X10*3/uL Abs Immat Gran (auto) 0.04 H (0.00-0.03) X10*3/uL Absolute Neuts (auto) 4.6 (2.0-8.3) x10*3/uL Absolute Nucleated RBC 0.000 (0.0-0.012) X10*3/uL Nucleated RBC % (auto) 0.0 (0.0-0.2) /100WBC Sodium 139 (135-145) mmol/L Potassium 4.1 (3.3-5.1) mmol/L Chloride 106 (96-108) mmol/L Carbon Dioxide 24 (22-29) mmol/L Anion Gap 13 (12-20) BUN 14 (9-16) mg/dL Creatinine 0.80 (0.5-1.4) mg/dL Estim Creat Clear Calc 114.0 Estimated GFR > 60 Random Glucose 102 (60-115) mg/dL Calcium 8.9 D (8.4-10.2) mg/dL Magnesium 2.3 (1.6-2.6) mg/dL Total Bilirubin 0.6 (0.0-1.0) mg/dL AST 26 (5-37) U/L ALT 24 (0-40) U/L Alkaline Phosphatase 64 (39-117) U/L Total Protein 7.0 (6.5-8.0) g/dL Albumin 4.5 (3.5-5.0) g/dL Lipase 16 (8-78) U/L Urine Color Yellow Urine Appearance Clear Urine pH >= 9.0 (5.0-9.0) Ur Specific [place] 1.010 (1.005-1.025) Urine Protein Negative (Neg-Trace) mg/dL Urine Glucose (UA) Negative (Negative) mg/dL Urine Ketones Trace (Negative) mg/dL Urine Blood Negative (Negative) Urine Nitrite Negative (Negative) Ur Leukocyte Esterase Negative (Negative) Independent Interpretation I performed an independent interpretation of an: Plain X-Ray Interpretation: No obvious SBO or free air Radiology Impression Discussion of test interpretation with radiology: I have reviewed the radiologist's reading. Radiologist Impression: Moderate stool no SBO Tests considered The following testing was considered but not selected: Would have consider CT abdomen and pelvis had been tender evidence for leukocytosis on labs Prescription Management I considered prescription management with: Other considered laxatives, but no longer indicated Chronic Conditions Patient?s care impacted by: Other (Obesity) Medications Administered Discontinued Medications Generic Name Dose Route Start Last Admin Trade Name Freq PRN Reason Stop Dose Admin Lactulose 200 gm 10/06/24 09:17 10/06/24 10:23 Lactulose 320 Gm/480 Ml Solution PA 10/06/24 09:18 200 gm ONCE ONE Administration Discharge Plan Discharge Clinical Impression: Constipation Qualifiers: Constipation type: slow transit constipation Qualified Code(s): K59.01 - Slow transit constipation Anemia Qualifiers: Anemia type: unspecified type Qualified Code(s): D64.9 - Anemia, unspecified Patient Disposition: Home, Self-Care Instructions: Constipation (DC) Additional Instructions: You were seen in the emergency department today for concerns of constipation with no bowel movement in 6 days. Your imaging and labs were reassuring there was no evidence of a bowel obstruction. Your labs did show that you have microcytic anemia which is likely from iron deficiency however this should be further evaluated by your primary care provider. A daily fiber intake of 20 to 25 g/day is generally recommended.? The effects of fiber on bowel movements may take several weeks. Bloating and flatulence is a common problem with increased fiber intake. General measures such as increased fluid intake and exercise are suggested to treat constipation. Timed toilet training consists of attempting a bowel movement at least twice a day, usually 30 minutes after meals, and to strain for no more than five minutes. Bathroom measures include: sitting up, leaning forward and raising the feet 8 to 12 inches above the ground. First line treatments are bulk forming laxatives and are available over the counter such as: metamucil, citrucel, Fibercon. These laxatives are effective in increasing the frequency and softening the consistency of stool with a minimum of adverse effects. They may be used alone or in combination with an increase in dietary fiber. Second line is Osmotic laxatives if not responding to bulk laxatives. Examples of these are miralax, and milk of magnesia.? Stool softeners (docusate), suppositories (glycerin or bisacodyl), and enemas, although widely used, have limited clinical efficacy. If all else fails and no bowel movement in one week, increased pain or abdominal distention, go to ER immediately. Prescriptions: No Action duloxetine 20 mg Capsule,Delayed Release(Dr/Ec) 20 mg PO DAILY 30 Days Qty: 30 0RF clonazepam [Klonopin] 0.5 mg Tablet 0.5 mg PO BID PRN (Reason: Anxiety) 30 Days Qty: 15 0RF Rx Instructions: Use sparingly and responsibly. will monitor and dispense escitalopram oxalate 10 mg Tablet 10 mg PO DAILY@0730 5 Days Qty: 5 0RF Rx Instructions: DC after 5 days hydrocortisone 1 % ointment 1 appl topical TID PRN (Reason: rash) Qty: 453.6 0RF lorazepam 0.5 mg Tablet 0.5 mg PO DAILY PRN (Reason: Panic Attack(S)) prednisone 20 mg Tablet 20 mg PO DAILY Probiotic multivitamin oseltamivir [Tamiflu] 75 mg capsule 75 mg PO BID 5 Days Qty: 10 0RF benzonatate 100 mg capsule 100 mg PO BID PRN (Reason: cough) Qty: 20 0RF trazodone 100 mg tablet 100 mg PO BEDTIME Referrals: Physician,Unknown J [Primary Care Provider, Medical] Interventions: ED Discharge Assessment Last Done: 10/06/24 10:59 Discharge Date/Time: 10/06/24 11:00 Print Language: Serbian
[2024-10-06 08:57] LABS: MANUAL DIFF FLAG NO
[2024-10-06 08:59] LABS: Hematocrit 38.5 % (42.0-52.0); Hemoglobin 13.7 g/dl (14.0-18.0); Imm Gran Abs Auto 0.04 X10*3/uL (0.00-0.03); Imm Gran Pct Auto 0.6 % (0.0-0.4); Lymphocytes Absolute Auto 1.8 X10*3/uL (1.2-4.9); Mean Corpuscular HGB Conc 35.6 g/dl (31.0-36.0); Mean Corpuscular Hemoglobin 31.4 pg (27.0-33.0); Mean Corpuscular Volume 88.1 fL (80.0-98.0); NRBC Abs Auto 0.000 X10*3/uL (0.0-0.012); NRBC Pct Auto 0.0 /100WBC (0.0-0.2); Platelet Count 327 X10*3/uL (160-400); Red Blood Count 4.37 X10*6/uL (4.60-5.80); White Blood Count 7.0 X10*3/uL (4.8-10.8)
[2024-10-06 09:14] LABS: Alanine Aminotransferase 24 U/L (0-40); Albumin Level 4.5 g/dL (3.5-5.0); Alkaline Phosphatase 64 U/L (39-117); Anion Gap 13 (12-20); Aspartate Amino Transferase 26 U/L (5-37); Blood Urea Nitrogen 14 mg/dL (9-16); Calcium 8.9 mg/dL (8.4-10.2); Carbon Dioxide 24 mmol/L (22-29); Chloride 106 mmol/L (96-108); Creatinine Clr Calc Pharmacy 114.0; Estimated Glomerular Filt Rate > 60; Lipase 16 U/L (8-78); Magnesium 2.3 mg/dL (1.6-2.6); Potassium 4.1 mmol/L (3.3-5.1); Sodium 139 mmol/L (135-145); Total Protein 7.0 g/dL (6.5-8.0)
[2024-10-06] MEDS: Lactulose 320 GM/480 ML SOLUTION 200 GM PR (10:23)
--- NOTE | 2024-10-06 10:46 | PC.NURSE ---
Pt receive approx 300ml of Lactulose enema and had large BM; pt flushed toilet so BM not visualized by this RN; pt reports large BM , denies any noticeable blood and relief of abdominal bloating; provider made aware
[2024-10-06 10:55] LABS: Appearance Urine Clear; Glucose Urine UA Negative (Negative); PH >= 9.0 (5.0-9.0); Specific Gravity - Urine 1.010 (1.005-1.025)
[2024-10-06 10:59] VITALS: BP 146/86; PULSE 82; RESP 16; TEMP 36.1; O2SAT 99
== END 2024-10-06 11:00 | disposition home or self-care (01) ==
PROVIDERS: Physician Assistant Medical; Emergency Provider Emergency Medicine
DX: K59.01 Slow transit constipation (principal); D64.9 Anemia, unspecified; R10.2 Pelvic and perineal pain; Z79.899 Other long term (current) drug therapy
CPT/HCPCS: 36415; 74018; 80053; 81003; 83690; 83735; 85025; 99283; 99284